=== PATIENT | male | born 1990 | race Caucasian/White ===

== ENCOUNTER → 2019-12-27 10:48 | Outpatient (BNVA) | payer OTHER, SELFPAY | PROVIDERS: PCP Family Medicine; Visit Provider Nurse Practitioner Family | DX: Z11.59 Encounter for screening for other viral diseases (principal); Z20.828 Contact with and (suspected) exposure to other viral communicable diseases | CPT/HCPCS: 87635 ==

== ENCOUNTER → 2020-01-03 12:58 | Outpatient (BNVA) | payer OTHER, SELFPAY | PROVIDERS: PCP Family Medicine; Visit Provider Nurse Practitioner Family | DX: Z11.59 Encounter for screening for other viral diseases (principal); Z20.828 Contact with and (suspected) exposure to other viral communicable diseases | CPT/HCPCS: 87635 ==

== ENCOUNTER → 2020-01-23 11:41 | Outpatient (BNVA) | payer OTHER, SELFPAY | PROVIDERS: PCP Family Medicine; Visit Provider Internal Medicine | DX: Z20.828 Contact with and (suspected) exposure to other viral communicable diseases (principal) | CPT/HCPCS: 87635 ==

== ENCOUNTER → 2020-05-26 11:58 | Outpatient (BNVA) | payer OTHER, SELFPAY | PROVIDERS: PCP Family Medicine; Visit Provider Emergency Medicine | DX: Z20.822 Contact with and (suspected) exposure to COVID-19 (principal) | CPT/HCPCS: 87635 ==

== ENCOUNTER 2020-05-30 09:01 | Inpatient (IN) | payer OTHER, SELFPAY ==
[2020-05-30] VITALS (9 sets, daily range): BP systolic 130–177; BP diastolic 70–103; PULSE 78–145; RESP 15–36; TEMP 36.6–37.7; O2SAT 88–93; BMI 48.7
--- NOTE | 2020-05-30 09:26 | XR_ITS ---
WS: [id number] XR chest 1V portable [id number] REASON FOR EXAM: sob, COVID + FINDINGS: Nondiagnostic quality limited by large body habitus. The heart and mediastinum are within normal limits. Patchy airspace consolidation in the left lower lobe, right lower lobe, and right mid lung. No pleural effusion identified. XR/XR chest 1V portable [id number] IMPRESSION: Presumed acute pneumonitis as above
--- NOTE | 2020-05-30 09:35 | ED_ITS ---
Documented by User: ÁNGEL Good 05/30/20 15:32 HPI - COVID General: Chief Complaint: COVID symptoms Stated Complaint: covid complications Time Seen by Provider: 05/30/20 09:18 Triage information: Has fever, cough or shortness of breath . Exposure to COVID + person last 14 days History of Present Illness: HPI Narrative: Patient type II diabetic with a history of cold symptoms since last Tuesday. Patient complains of cough muscle aches diarrhea dry heaving loss of taste and smell. Tested positive on 05/26. MD complaint: known COVID positive Prior covid testing: yes, results known Prior testing date: 05/26/20 COVID 19 common symptoms: positive fever(s), chills, non-productive cough, body aches, loss of sense of smell and/or taste, nausea and diarrhea; negative headache(s), throat pain or nasal congestion COVID 19 other sytmptoms: negative chest pain Onset (ago): day(s) Severity: moderate Pertinent comorbid conditions: diabetes and hypertension Treatment prior to arrival: none COVID Results: SARS-CoV-2 RNA (RT-PCR) Detected (NOT DETECTED) A 05/26/20 11:58 05/26/20 Review of Systems Const: Reports: fever(s), chills and body aches Eyes: Denies: change in vision or blurry vision ENMT: Denies: throat pain or nasal congestion Card: Denies: chest pain or dyspnea on exertion Resp: Reports: non-productive cough GI: Reports: nausea and diarrhea : Denies: difficulty urinating Musc: Denies: extremity pain Skin/Breast: Denies: rash Neuro: Denies: headache(s) Psych: Denies: anxiety or depression Fermín/Lymph: Denies: easy bruising Physical Exam Const: COMMON NORMALS: no acute distress, average body habitus (Obese BMI is 48) and patient oriented x3 HENMT: COMMON NORMALS: normocephalic HEAD & SCALP: normal to inspection and normocephalic FACE & SINUS: normal facial exam Eye: COMMON NORMALS: conjunctivae normal GENERAL EYE: appearance normal, both eyes and all related structures CONJUNCTIVA: Yes conjunctivae normal Neck/C-Spine: COMMON NORMALS: no JVD Chest: COMMONS NORMALS: normal inspection of the chest Resp: COMMON NORMALS: normal respiratory effort Cardio: COMMON NORMALS: no JVD and regular rhythm RATE: tachycardic RHYTHM: regular rhythm GI: COMMON NORMALS: Normal to inspection, nondistended, normoactive bowel sounds present Extremity: COMMON NORMALS: normal to inspection and full ROM Neuro: COMMON NORMALS: patient oriented x3 Course Vital Signs: Vital signs: Vital Signs Temperature 98.5 F 05/31/20 00:00 Pulse Rate 94 05/31/20 00:00 Respiratory Rate 20 H 05/31/20 00:00 Blood Pressure 141/82 05/31/20 00:00 Pulse Oximetry 91 05/31/20 00:00 MDM - COVID MDM Narrative: Medical decision making narrative: Discussed ABG and patient's presentation with Dr. Pate. Lab Data: Labs: Lab Results 05/30/20 05/30/20 05/30/20 Range/Units 09:30 09:30 09:30 WBC 8.6 (4.0-10.0) 10^3/ uL RBC 5.58 H (4.1-5.3) 10^6/u L Hgb 15.4 (11.7-16.6) g/dL Hct 47.1 (42.0-52.0) % MCV 84.4 (80-94) fL MCH 27.6 L (28.0-34.0) pg MCHC 32.7 (30.0-36.0) g/dL RDW 13.9 (12.1-15.1) % Plt Count 122 L (130-400) 10^3/c mm MPV 12.9 H (7.4-10.4) fL Neut % (Auto) 90.2 % Lymph % (Auto) 7.0 % Mineral % (Auto) 2.1 % Eos % (Auto) 0.0 % Baso % (Auto) 0.1 % Neut # (Auto) 7.76 H (1.8-7.7) 10^3/u L Lymph # (Auto) 0.6 L (0.8-4.8) 10^3/u L Mineral # (Auto) 0.2 (0.2-0.9) 10^3/u L Eos # (Auto) 0.0 (0.0-0.8) 10^3/u L Baso # (Auto) 0.0 (0.0-0.1) 10^3/u L Nucleated RBC % (a uto) 0 % Nucleated RBCs # 0.0 /100WBC PT Cancelled INR Cancelled Fibrinogen Cancelled D-Dimer (0-0.59) ug/mIFE U Specimen Type Sample Site ABG pH (7.35-7.45) ABG pCO2 (35-45) mmHg ABG pO2 (80.0-100.0) mmH g ABG HCO3 (22-26) mmol/L ABG Base Excess (-2.0-2.0) mmol/ L Huber Test Hematocrit (42-52) % O2 Delivery Device O2 Liters/Min % FiO2 % Manufacturing Process Engineer ID Sodium Cancelled Potassium Cancelled Chloride Cancelled Carbon Dioxide Cancelled Anion Gap Cancelled BUN Cancelled Creatinine Cancelled GFR Calculation Cancelled Glucose Cancelled Calculated Osmolal ity Cancelled Lactic Acid Calcium Cancelled Ferritin Cancelled Total Bilirubin Cancelled AST Cancelled ALT Cancelled Alkaline Phosphata se Cancelled Lactate Dehydrogen ase Cancelled Total Protein Cancelled Albumin Cancelled Globulin Cancelled Procalcitonin Cancelled 05/30/20 05/30/20 05/30/20 Range/Units 09:30 09:37 09:58 WBC (4.0-10.0) 10^3/ uL RBC (4.1-5.3) 10^6/u L Hgb (11.7-16.6) g/dL Hct (42.0-52.0) % MCV (80-94) fL MCH (28.0-34.0) pg MCHC (30.0-36.0) g/dL RDW (12.1-15.1) % Plt Count (130-400) 10^3/c mm MPV (7.4-10.4) fL Neut % (Auto) % Lymph % (Auto) % Mineral % (Auto) % Eos % (Auto) % Baso % (Auto) % Neut # (Auto) (1.8-7.7) 10^3/u L Lymph # (Auto) (0.8-4.8) 10^3/u L Mineral # (Auto) (0.2-0.9) 10^3/u L Eos # (Auto) (0.0-0.8) 10^3/u L Baso # (Auto) (0.0-0.1) 10^3/u L Nucleated RBC % (a uto) % Nucleated RBCs # /100WBC PT INR Fibrinogen D-Dimer (0-0.59) ug/mIFE U Specimen Type Arterial Sample Site Radial, right ABG pH 7.42 (7.35-7.45) ABG pCO2 27.1 L (35-45) mmHg ABG pO2 49.9 L (80.0-100.0) mmH g ABG HCO3 17.4 L (22-26) mmol/L ABG Base Excess -5.3 L (-2.0-2.0) mmol/ L Huber Test Pos Hematocrit 48.8 (42-52) % O2 Delivery Device Nc O2 Liters/Min 2.0 % FiO2 28.0 % Manufacturing Process Engineer ID Ed Sodium Potassium Chloride Carbon Dioxide Anion Gap BUN Creatinine GFR Calculation Glucose Calculated Osmolal ity Lactic Acid Cancelled 1.8 Calcium Ferritin Total Bilirubin AST ALT Alkaline Phosphata se Lactate Dehydrogen ase Total Protein Albumin Globulin Procalcitonin 05/30/20 05/30/20 05/30/20 Range/Units 09:58 09:58 09:59 WBC (4.0-10.0) 10^3/ uL RBC (4.1-5.3) 10^6/u L Hgb (11.7-16.6) g/dL Hct (42.0-52.0) % MCV (80-94) fL MCH (28.0-34.0) pg MCHC (30.0-36.0) g/dL RDW (12.1-15.1) % Plt Count (130-400) 10^3/c mm MPV (7.4-10.4) fL Neut % (Auto) % Lymph % (Auto) % Mineral % (Auto) % Eos % (Auto) % Baso % (Auto) % Neut # (Auto) (1.8-7.7) 10^3/u L Lymph # (Auto) (0.8-4.8) 10^3/u L Mineral # (Auto) (0.2-0.9) 10^3/u L Eos # (Auto) (0.0-0.8) 10^3/u L Baso # (Auto) (0.0-0.1) 10^3/u L Nucleated RBC % (a uto) % Nucleated RBCs # /100WBC PT 13.50 INR 1.00 Fibrinogen 807 H D-Dimer 0.60 H (0-0.59) ug/mIFE U Specimen Type Sample Site ABG pH (7.35-7.45) ABG pCO2 (35-45) mmHg ABG pO2 (80.0-100.0) mmH g ABG HCO3 (22-26) mmol/L ABG Base Excess (-2.0-2.0) mmol/ L Huber Test Hematocrit (42-52) % O2 Delivery Device O2 Liters/Min % FiO2 % Manufacturing Process Engineer ID Sodium 134 L Potassium 3.8 Chloride 96 L Carbon Dioxide 17 L Anion Gap 24.8 H BUN 8 Creatinine 0.6 L GFR Calculation 156.1 H Glucose 346 H Calculated Osmolal ity 290 Lactic Acid Calcium 8.8 Ferritin 1715 H Total Bilirubin 0.4 AST 39 ALT 37 Alkaline Phosphata se 62 Lactate Dehydrogen ase 395 H Total Protein 7.7 Albumin 3.7 Globulin 4.0 Procalcitonin 0.27 03/19/21 Range/Units 11:13 WBC (4.0-10.0) 10^3/ uL RBC (4.1-5.3) 10^6/u L Hgb (11.7-16.6) g/dL Hct (42.0-52.0) % MCV (80-94) fL MCH (28.0-34.0) pg MCHC (30.0-36.0) g/dL RDW (12.1-15.1) % Plt Count (130-400) 10^3/c mm MPV (7.4-10.4) fL Neut % (Auto) % Lymph % (Auto) % Mineral % (Auto) % Eos % (Auto) % Baso % (Auto) % Neut # (Auto) (1.8-7.7) 10^3/u L Lymph # (Auto) (0.8-4.8) 10^3/u L Mineral # (Auto) (0.2-0.9) 10^3/u L Eos # (Auto) (0.0-0.8) 10^3/u L Baso # (Auto) (0.0-0.1) 10^3/u L Nucleated RBC % (a uto) % Nucleated RBCs # /100WBC PT INR Fibrinogen D-Dimer (0-0.59) ug/mIFE U Specimen Type Arterial Sample Site Radial, right ABG pH 7.38 (7.35-7.45) ABG pCO2 28.8 L (35-45) mmHg ABG pO2 71.1 L (80.0-100.0) mmH g ABG HCO3 17.0 L (22-26) mmol/L ABG Base Excess -6.7 L (-2.0-2.0) mmol/ L Huber Test Pos Hematocrit 43.3 (42-52) % O2 Delivery Device Nc O2 Liters/Min 5.0 % FiO2 40.0 % Manufacturing Process Engineer ID Ed Sodium Potassium Chloride Carbon Dioxide Anion Gap BUN Creatinine GFR Calculation Glucose Calculated Osmolal ity Lactic Acid Calcium Ferritin Total Bilirubin AST ALT Alkaline Phosphata se Lactate Dehydrogen ase Total Protein Albumin Globulin Procalcitonin COVID Results: SARS-CoV-2 RNA (RT-PCR) Detected (NOT DETECTED) A 05/26/20 11:58 05/26/20 Discharge Plan Discharge Patient Disposition: Admitted As Inpatient Admit Provider: Emeka Drake Clinical Impression: Pneumonia due to 2019 novel coronavirus, Acute respiratory failure Condition: Stable Sign Out Sign Out Data: Patient Sign Out occurred on 05/30/20 at 11:27. Patient's care was discussed, and care was transferred from to Tony Izquierdo MD, [facility]. Coding Level of Care Code ED Mixer Diamond Powder for Chg Fwd Exam Comprehensive Documented by User: Tony Izquierdo MD, [facility] 05/31/20 00:33 HPI - COVID General: Chief Complaint: COVID symptoms Stated Complaint: covid complications Time Seen by Provider: 05/30/20 09:18 COVID Results: SARS-CoV-2 RNA (RT-PCR) Detected (NOT DETECTED) A 05/26/20 11:58 05/26/20 Course Consultations: Consultation #1: Discussed the patient with Dr. Drake, hospitalist and he kindly accepted patient to his service. Time: 13:19 Vital Signs: Vital signs: Vital Signs Temperature 98.5 F 05/31/20 00:00 Pulse Rate 94 05/31/20 00:00 Respiratory Rate 20 H 05/31/20 00:00 Blood Pressure 141/82 05/31/20 00:00 Pulse Oximetry 91 05/31/20 00:00 MDM - COVID MDM Narrative: Medical decision making narrative: Currently reviewed the nurse practitioner's notes, Michael Jacobo, for complete history and physical examination. I also evaluated this patient and agree with his findings. Essentially this is a 30-year-old obese, diabetic gentleman who was recently diagnosed with COVID-19 about 4 days ago. He has been feeling unwell for about 1 week now. He developed significant shortness of breath and was hypoxic in the emergency department requiring up to 6 L of oxygen via nasal cannula. Because of this and the fact that he is high risk with his obesity and diabetes he is being admitted for further evaluation and management. He was given a dose of dexamethasone in the emergency department as well as remdesivir. Medical Records: Attestation: I reviewed the patient's medical records. Lab Data: Attestation: I reviewed the patient's lab results. Labs: Lab Results 05/30/20 05/30/20 05/30/20 Range/Units 09:30 09:30 09:30 WBC 8.6 (4.0-10.0) 10^3/ uL RBC 5.58 H (4.1-5.3) 10^6/u L Hgb 15.4 (11.7-16.6) g/dL Hct 47.1 (42.0-52.0) % MCV 84.4 (80-94) fL MCH 27.6 L (28.0-34.0) pg MCHC 32.7 (30.0-36.0) g/dL RDW 13.9 (12.1-15.1) % Plt Count 122 L (130-400) 10^3/c mm MPV 12.9 H (7.4-10.4) fL Neut % (Auto) 90.2 % Lymph % (Auto) 7.0 % Mineral % (Auto) 2.1 % Eos % (Auto) 0.0 % Baso % (Auto) 0.1 % Neut # (Auto) 7.76 H (1.8-7.7) 10^3/u L Lymph # (Auto) 0.6 L (0.8-4.8) 10^3/u L Mineral # (Auto) 0.2 (0.2-0.9) 10^3/u L Eos # (Auto) 0.0 (0.0-0.8) 10^3/u L Baso # (Auto) 0.0 (0.0-0.1) 10^3/u L Nucleated RBC % (a uto) 0 % Nucleated RBCs # 0.0 /100WBC PT Cancelled INR Cancelled Fibrinogen Cancelled D-Dimer (0-0.59) ug/mIFE U Specimen Type Sample Site ABG pH (7.35-7.45) ABG pCO2 (35-45) mmHg ABG pO2 (80.0-100.0) mmH g ABG HCO3 (22-26) mmol/L ABG Base Excess (-2.0-2.0) mmol/ L Huber Test Hematocrit (42-52) % O2 Delivery Device O2 Liters/Min % FiO2 % Manufacturing Process Engineer ID Sodium Cancelled Potassium Cancelled Chloride Cancelled Carbon Dioxide Cancelled Anion Gap Cancelled BUN Cancelled Creatinine Cancelled GFR Calculation Cancelled Glucose Cancelled Calculated Osmolal ity Cancelled Lactic Acid Calcium Cancelled Ferritin Cancelled Total Bilirubin Cancelled AST Cancelled ALT Cancelled Alkaline Phosphata se Cancelled Lactate Dehydrogen ase Cancelled Total Protein Cancelled Albumin Cancelled Globulin Cancelled Procalcitonin Cancelled 05/30/20 05/30/20 05/30/20 Range/Units 09:30 09:37 09:58 WBC (4.0-10.0) 10^3/ uL RBC (4.1-5.3) 10^6/u L Hgb (11.7-16.6) g/dL Hct (42.0-52.0) % MCV (80-94) fL MCH (28.0-34.0) pg MCHC (30.0-36.0) g/dL RDW (12.1-15.1) % Plt Count (130-400) 10^3/c mm MPV (7.4-10.4) fL Neut % (Auto) % Lymph % (Auto) % Mineral % (Auto) % Eos % (Auto) % Baso % (Auto) % Neut # (Auto) (1.8-7.7) 10^3/u L Lymph # (Auto) (0.8-4.8) 10^3/u L Mineral # (Auto) (0.2-0.9) 10^3/u L Eos # (Auto) (0.0-0.8) 10^3/u L Baso # (Auto) (0.0-0.1) 10^3/u L Nucleated RBC % (a uto) % Nucleated RBCs # /100WBC PT INR Fibrinogen D-Dimer (0-0.59) ug/mIFE U Specimen Type Arterial Sample Site Radial, right ABG pH 7.42 (7.35-7.45) ABG pCO2 27.1 L (35-45) mmHg ABG pO2 49.9 L (80.0-100.0) mmH g ABG HCO3 17.4 L (22-26) mmol/L ABG Base Excess -5.3 L (-2.0-2.0) mmol/ L Huber Test Pos Hematocrit 48.8 (42-52) % O2 Delivery Device Nc O2 Liters/Min 2.0 % FiO2 28.0 % Manufacturing Process Engineer ID Ed Sodium Potassium Chloride Carbon Dioxide Anion Gap BUN Creatinine GFR Calculation Glucose Calculated Osmolal ity Lactic Acid Cancelled 1.8 Calcium Ferritin Total Bilirubin AST ALT Alkaline Phosphata se Lactate Dehydrogen ase Total Protein Albumin Globulin Procalcitonin 05/30/20 05/30/20 05/30/20 Range/Units 09:58 09:58 09:59 WBC (4.0-10.0) 10^3/ uL RBC (4.1-5.3) 10^6/u L Hgb (11.7-16.6) g/dL Hct (42.0-52.0) % MCV (80-94) fL MCH (28.0-34.0) pg MCHC (30.0-36.0) g/dL RDW (12.1-15.1) % Plt Count (130-400) 10^3/c mm MPV (7.4-10.4) fL Neut % (Auto) % Lymph % (Auto) % Mineral % (Auto) % Eos % (Auto) % Baso % (Auto) % Neut # (Auto) (1.8-7.7) 10^3/u L Lymph # (Auto) (0.8-4.8) 10^3/u L Mineral # (Auto) (0.2-0.9) 10^3/u L Eos # (Auto) (0.0-0.8) 10^3/u L Baso # (Auto) (0.0-0.1) 10^3/u L Nucleated RBC % (a uto) % Nucleated RBCs # /100WBC PT 13.50 INR 1.00 Fibrinogen 807 H D-Dimer 0.60 H (0-0.59) ug/mIFE U Specimen Type Sample Site ABG pH (7.35-7.45) ABG pCO2 (35-45) mmHg ABG pO2 (80.0-100.0) mmH g ABG HCO3 (22-26) mmol/L ABG Base Excess (-2.0-2.0) mmol/ L Huber Test Hematocrit (42-52) % O2 Delivery Device O2 Liters/Min % FiO2 % Manufacturing Process Engineer ID Sodium 134 L Potassium 3.8 Chloride 96 L Carbon Dioxide 17 L Anion Gap 24.8 H BUN 8 Creatinine 0.6 L GFR Calculation 156.1 H Glucose 346 H Calculated Osmolal ity 290 Lactic Acid Calcium 8.8 Ferritin 1715 H Total Bilirubin 0.4 AST 39 ALT 37 Alkaline Phosphata se 62 Lactate Dehydrogen ase 395 H Total Protein 7.7 Albumin 3.7 Globulin 4.0 Procalcitonin 0.27 03/19/21 Range/Units 11:13 WBC (4.0-10.0) 10^3/ uL RBC (4.1-5.3) 10^6/u L Hgb (11.7-16.6) g/dL Hct (42.0-52.0) % MCV (80-94) fL MCH (28.0-34.0) pg MCHC (30.0-36.0) g/dL RDW (12.1-15.1) % Plt Count (130-400) 10^3/c mm MPV (7.4-10.4) fL Neut % (Auto) % Lymph % (Auto) % Mineral % (Auto) % Eos % (Auto) % Baso % (Auto) % Neut # (Auto) (1.8-7.7) 10^3/u L Lymph # (Auto) (0.8-4.8) 10^3/u L Mineral # (Auto) (0.2-0.9) 10^3/u L Eos # (Auto) (0.0-0.8) 10^3/u L Baso # (Auto) (0.0-0.1) 10^3/u L Nucleated RBC % (a uto) % Nucleated RBCs # /100WBC PT INR Fibrinogen D-Dimer (0-0.59) ug/mIFE U Specimen Type Arterial Sample Site Radial, right ABG pH 7.38 (7.35-7.45) ABG pCO2 28.8 L (35-45) mmHg ABG pO2 71.1 L (80.0-100.0) mmH g ABG HCO3 17.0 L (22-26) mmol/L ABG Base Excess -6.7 L (-2.0-2.0) mmol/ L Huber Test Pos Hematocrit 43.3 (42-52) % O2 Delivery Device Nc O2 Liters/Min 5.0 % FiO2 40.0 % Manufacturing Process Engineer ID Ed Sodium Potassium Chloride Carbon Dioxide Anion Gap BUN Creatinine GFR Calculation Glucose Calculated Osmolal ity Lactic Acid Calcium Ferritin Total Bilirubin AST ALT Alkaline Phosphata se Lactate Dehydrogen ase Total Protein Albumin Globulin Procalcitonin Imaging Data: CTA Chest: Attestation: I personally reviewed and interpreted this imaging study as follows: Radiologist's impression: [address] [address] [address] Scan Report Signed Patient: Omid Alfonso #: [id number] : 1990Acct#:[id number] Age/Sex: 30 / MADM Date: 05/30/20 [facility] Attending Dr: Ordering Provider/Ordering MD: Tony Izquierdo MD, [facility] Date of Service: 05/30/20 Procedure(s): CT angio chest PE protcl [id number] Accession Number(s): [id number] Report Number: [id number] WS: [id number] CT angio chest PE protcl [id number] REASON FOR EXAM: SOB, hypoxia, COVID+ TECHNIQUE: Coronal and sagittal 2-D and MIP reformations. IV CONTRAST ADMINISTERED: 95 mL of Omnipaque 300. TOTAL EXAM DLP: 1750.[address] scans at [facility] use at least one of these dose optimization techniques: automated exposure control; mA and/or kV adjustment per patient size (includes targeted exams where dose is matched to clinical indication); or iterative reconstruction. FINDINGS: Significant artifact through the pulmonary vasculature due to dense contrast remaining in the left subclavian, innominate, and SVC veins. No pulmonary emboli identified. No mediastinal or hilar mass. Normal thoracic aorta. Extensive areas of confluent airspace consolidation and patchy distribution throughout both lungs. There are also areas of more vaguely defined groundglass density. No significant pleural fluid. CT/CT angio chest PE protcl [id number] IMPRESSION: Examination for pulmonary emboli is not optimal however no pulmonary emboli identified. Extensive pulmonary parenchymal disease as above. Dictated By:Rylan Johns Jr, MD Signed By:Rylan Johns Jr MDSigned Date/Time:05/30/20 1406 DD/ 1356 CXR: Attestation: I personally reviewed and interpreted this imaging study as follows: Radiologist's impression: [address] [address] XRay Report Signed Patient: Omid Alfonso #: [id number] : 1990Acct#:[id number] Age/Sex: 30 / MADM Date: 05/30/20 Loc: ERRoom/Bed: Attending Dr: Ordering Provider/Ordering MD: Silvana Jacobo Sr, [facility] Date of Service: 05/30/20 Procedure(s): XR chest 1V portable [id number] Accession Number(s): [id number] Report Number: [id number] WS: [id number] XR chest 1V portable [id number] REASON FOR EXAM: sob, COVID + FINDINGS: Nondiagnostic quality limited by large body habitus. The heart and mediastinum are within normal limits. Patchy airspace consolidation in the left lower lobe, right lower lobe, and right mid lung. No pleural effusion identified. XR/XR chest 1V portable [id number] IMPRESSION: Presumed acute pneumonitis as above Dictated By:Rylan Johns Jr, MD Signed By:Rylan Johns Jr MDSigned Date/Time:05/30/20948 DD/ COVID Results: SARS-CoV-2 RNA (RT-PCR) Detected (NOT DETECTED) A 05/26/20 11:58 05/26/20 Discharge Plan Discharge Patient Disposition: Admitted As Inpatient Admit Provider: Emeka Drake Clinical Impression: Pneumonia due to 2019 novel coronavirus, Acute respiratory failure Condition: Stable Sign Out Sign Out Data: Patient Sign Out occurred on 05/30/20 at 11:27. Patient's care was discussed, and care was transferred from to Tony Izquierdo MD, [facility]. Coding Level of Care Code ED Mixer Diamond Powder for Chg Fwd Exam Comprehensive
[2020-05-30 09:49] LABS: ABG PCO2 27.1 mmHg (35-45); ABG PH Result 7.42 (7.35-7.45); Arterial Blood Gas Hematocrit 48.8 % (42-52); Base Excess ABG -5.3 mmol/L (-2.0-2.0); Blood Gas Allen Test Pos; Blood Gas Operator Identificat ED; Blood Gas Sample Site Radial, right; Blood Gas Sample Type Arterial; HCO3 ABG 17.4 mmol/L (22-26); Oxygen Device NC; PO2 ABG 49.9 mmHg (80.0-100.0)
[2020-05-30 09:51] LABS: Basophils % 0.1 %; Hematocrit 47.1 % (42.0-52.0); Hemoglobin 15.4 g/dL (11.7-16.6); Lymphocytes # 0.6 10^3/uL (0.8-4.8); Mean Corpuscular HGB Conc 32.7 g/dL (30.0-36.0); Mean Corpuscular Hemoglobin 27.6 pg (28.0-34.0); Mean Corpuscular Volume 84.4 fL (80-94); Mean Platelet Volume 12.9 fL (7.4-10.4); Monocytes # 0.2 10^3/uL (0.2-0.9); Monocytes % 2.1 %; Neutrophils # 7.76 10^3/uL (1.8-7.7); Neutrophils % 90.2 %; Nucleated Red Blood Cells % 0 %; Platelet Count 122 10^3/cmm (130-400); Red Blood Count 5.58 10^6/uL (4.1-5.3); Red Cell Distribution Width 13.9 % (12.1-15.1); White Blood Count 8.6 10^3/uL (4.0-10.0)
[2020-05-30] MEDS: sodium chloride 0.9% 1,000 ML 999 ML IV (10:06)
[2020-05-30 10:25] LABS: Lactic Sepsis W/Reflex 1.8 mmol/L (0.5-2.2)
[2020-05-30] MEDS: ketorolac 30 mg/mL INJ IVP ×3 (10:34→21:51)
[2020-05-30] MEDS: acetaminophen 650 mg/20.3 mL UDC PO (10:34)
[2020-05-30 10:35] LABS: Procalcitonin 0.27 ng/mL (0-0.5)
[2020-05-30 10:46] LABS: Alanine Aminotransferase 37 U/L (0-41); Albumin Level 3.7 g/dL (3.5-5.2); Alkaline Phosphatase 62 IU/L (40-130); Aspartate Amino Transferase 39 U/L (0-40); Blood Urea Nitrogen 8 mg/dL (6-20); Calcium 8.8 mg/dL (8.5-10.5); Carbon Dioxide 17 mmol/L (22-29); Glomerular Filtration Rate 156.1 mL/min (90-130); Glucose 346 mg/dL (65-115); Lactate Dehydrogenase 395 U/L (135-225); Total Bilirubin 0.4 mg/dL (0.15-1.2); Total Protein 7.7 g/dL (6.6-8.7)
[2020-05-30 10:49] LABS: Fibrinogen 807 mg/dL (174-498)
[2020-05-30 11:22] LABS: ABG PCO2 28.8 mmHg (35-45); ABG PH Result 7.38 (7.35-7.45); Arterial Blood Gas Hematocrit 43.3 % (42-52); Base Excess ABG -6.7 mmol/L (-2.0-2.0); Blood Gas Allen Test Pos; Blood Gas Sample Type Arterial; PO2 ABG 71.1 mmHg (80.0-100.0)
[2020-05-30 11:23] LABS: Anion Gap 24.8 (5-19); Chloride 96 mmol/L (98-107); Ferritin 1715 ng/mL (30-400); Osmolality Calculated 290 mOsm/kg (285-295); Potassium 3.8 mmol/L (3.5-5.1); Sodium 134 mmol/L (136-145)
[2020-05-30 11:24] LABS: Blood Gas Operator Identificat ED; Blood Gas Sample Site Radial, right; Oxygen Device NC
--- NOTE | 2020-05-30 12:07 | CT_ITS ---
WS: [id number] CT angio chest PE protcl [id number] REASON FOR EXAM: SOB, hypoxia, COVID+ TECHNIQUE: Coronal and sagittal 2-D and MIP reformations. IV CONTRAST ADMINISTERED: 95 mL of Omnipaque 300. TOTAL EXAM DLP: 1750.[address] scans at [facility] use at least one of these dose optimization techniques: automat ed exposure control; mA and/or kV adjustment per patient size (includes targeted exams where dose is matched to clinical indication); or iterative reconstruction. FINDINGS: Significant artifact through the pulmonary vasculature due to dense contrast remaining in the left hernandez bclavian, innominate, and SVC veins. No pulmonary emboli identified. No mediastinal or hilar mass. Normal thoracic aorta. Extensive areas of confluent airspace consolidation and patchy distribution throughout both lungs. Th ere are also areas of more vaguely defined groundglass density. No significant pleural fluid. CT/CT angio chest PE protcl [id number] IMPRESSION: Examination for pulmonary emboli is not optimal however no pulmonary emboli latonya ntified. Extensive pulmonary parenchymal disease as above.
[2020-05-30] MEDS: iohexol 350 mg/mL 100 mL Btl IV (13:48)
[2020-05-30] MEDS: remdesivir 200 MG in sodium chloride 0.9% (100 ml) 100 ML 100 MG IV (14:32)
[2020-05-30] MEDS: dexamethasone 4 mg/mL INJ 6 MG IVP (14:51)
--- NOTE | 2020-05-30 15:27 | P.HP_ITS ---
Providers/Chief Complaint Primary Care Provider: Kenny Rico Chief Complaint: COVID+...COUGH, DRY HEAVES, FEVER History of Present Illness Omid Alfonso is a 30 year old male with pmh of DM currently not on any medication, mobid obesity, came in with c/o worsening non productive cough,fever, sob,genralizsed body pain, diarrhea , dry heaves , loss of taste and smell, started about a week ago,he was tested positive for COVID on 05/26 initially stayed at home but unfortunately has to come to the ER today as his symptoms were progressively worsening.He developed significant shortness of breath and was hypoxic in the emergency department requiring up to 6 L of oxygen via nasal cannula. Pertinent work up. C.T.A chest : No P.E : Extensive areas of confluent airspace consolidation and patchy distribution throughout both lungs. There are also areas of more vaguely defined groundglass density. ABG : Ph: 7.38,PCO2: 28, PO2: 71 FIO2 : 40 % He was started on Remdesivir as well as dexamethasone in the ER. Review of Systems Card: Denies: palpitations, edema or swelling of feet/ankles : Denies: flank pain or difficulty urinating Musc: Denies: back pain, extremity pain or extremity swelling Neuro: Denies: difficulty walking or confusion Medications/Allergies Home Medications Medication Instructions Recorded Confirmed Last Taken Type No Known Home Medications 12/27/19 05/30/20 Unknown History Allergies Allergy/AdvReac Type Severity Reaction Status Date / Time No Known Allergies Allergy Unverified 12/27/19 09:13 Vitals/I&O/Wt Last Vital Signs Temp 98 F 05/30/20 11:32 Pulse 122 H 05/30/20 11:32 Resp 24 H 05/30/20 11:32 BP 152/83 05/30/20 11:32 Pulse Ox 92 05/30/20 11:32 Weight last 48 hrs Weight 149.685 kg Physical Exam Const: COMMON NORMALS: patient oriented x3 HENMT: COMMON NORMALS: normocephalic, atraumatic, hearing grossly normal bilaterally and external ears normal HEAD & SCALP: normocephalic and atraumatic EXTERNAL EAR: Yes external ears normal Eye: COMMON NORMALS: no scleral icterus GENERAL EYE: appearance normal, both eyes and all related structures Chest: COMMONS NORMALS: normal inspection of the chest and normal palpation of entire chest wall CHEST: Yes Symmetrical chest wall rise Resp: COMMON NORMALS: normal respiratory effort, No retractions, No use of accessory muscles and clear to auscultation bilaterally EFFORT & INSPECTION: Yes symmetric chest movement AUSCULTATION: clear to auscultation bilaterally Cardio: COMMON NORMALS: regular rate, regular rhythm, S1 normal heart sound present, S2 normal heart sound present, No gallops present (Cardio), No murmurs present (Cardio), No rub (Cardio) and Peripheral pulses 2+ throughout RATE: regular rate RHYTHM: regular rhythm HEART SOUNDS: S1 normal heart sound present and S2 normal heart sound present PERIPHERAL PULSES: Peripheral pulses 2+ throughout GI: COMMON NORMALS: Normal to inspection, nondistended, normoactive bowel soun ds present, Soft to palpation, non-tender, No hepatosplenomegaly present and no masses AUSCULTATION: Yes normoactive bowel sounds PALPATION: Yes Soft to palpation and Yes No hepatosplenomegaly present RECTAL EXAM: Yes deferred Extremity: COMMON NORMALS: no clubbing, cyanosis or edema and no pedal edema Neuro: COMMON NORMALS: patient oriented x3 Data : 05/31/20 05:50 05/30/20 09:58 A&P Assessment and plan (1) Acute respiratory failure: Ac Hypoxic R/F 2/2 COVID PNA /Possible superimposed bacterial PNA. On Remdesivir for 5 day course Dexamethasone 6mg I.V 10 Days course Levofloxacin 750 mg i.v Daily Trend Inflammatory Markers Lovenox 40 mg sc daily Status: Acute Qualifiers: Respiratory failure complication: hypoxia Qualified Code(s): J96.01 - Acute respiratory failure with hypoxia (2) Pneumonia due to 2019 novel coronavirus: Status: Acute (3) Diabetes: Status: Acute Additional A&P Information Code Status :Full Code DVT PPX: Lovenox 40 m sc daily Attestations Medical Necessity Statement*: Patient needs to be in hospital for the management of COVID PNA.Anticipated LOS Greater then 2 midnights Coding Level of Care Code Acute Studio Data Analyst for [facility] Diagnoses Acute respiratory failure J96.01 Respiratory failure complication: hypoxia Pneumonia due to 2019 novel coronavirus U07.1; J12.89 Diabetes E11.9
[2020-05-30] MEDS: enoxaparin 40 mg/0.4 mL Syringe SUBCUT (16:30)
[2020-05-30] MEDS: levofloxacin-dextrose 5 % 750 MG/150 ML PREMIX 100 MG IV (16:30)
[2020-05-30 17:35] LABS: Glucose Point of Care 325 mg/dL (70-110)
[2020-05-30 21:50] LABS: Glucose Point of Care 374 mg/dL (70-110)
[2020-05-31] VITALS (11 sets, daily range): BP systolic 132–161; BP diastolic 81–96; PULSE 94–124; RESP 16–24; TEMP 35.9–37.2; O2SAT 89–93
[2020-05-31] MEDS: ketorolac 30 mg/mL INJ IVP (04:52)
[2020-05-31 06:16] LABS: Hematocrit 42.6 % (42.0-52.0); Hemoglobin 13.6 g/dL (11.7-16.6); Lymphocytes # 0.8 10^3/uL (0.8-4.8); Lymphocytes % 10.2 %; Mean Corpuscular HGB Conc 31.9 g/dL (30.0-36.0); Mean Corpuscular Hemoglobin 27.4 pg (28.0-34.0); Mean Corpuscular Volume 85.7 fL (80-94); Mean Platelet Volume 12.7 fL (7.4-10.4); Monocytes # 0.2 10^3/uL (0.2-0.9); Neutrophils # 6.39 10^3/uL (1.8-7.7); Neutrophils % 86.1 %; Nucleated Red Blood Cells % 0 %; Platelet Count 131 10^3/cmm (130-400); Red Blood Count 4.97 10^6/uL (4.1-5.3); Red Cell Distribution Width 13.8 % (12.1-15.1); White Blood Count 7.4 10^3/uL (4.0-10.0)
[2020-05-31 06:36] LABS: D Dimer 0.65 ug/mIFEU (0-0.59)
[2020-05-31 06:49] LABS: Procalcitonin 0.25 ng/mL (0-0.5)
[2020-05-31 07:01] LABS: Anion Gap 22.2 (5-19); Blood Urea Nitrogen 14 mg/dL (6-20); C Reactive Protein 247.3 mg/L (0.0-4.9); Calcium 8.7 mg/dL (8.5-10.5); Carbon Dioxide 19 mmol/L (22-29); Chloride 98 mmol/L (98-107); Glomerular Filtration Rate 192.7 mL/min (90-130); Glucose 280 mg/dL (65-115); Osmolality Calculated 291 mOsm/kg (285-295); Potassium 4.2 mmol/L (3.5-5.1); Sodium 135 mmol/L (136-145)
[2020-05-31 07:06] LABS: Glucose Point of Care 301 mg/dL (70-110)
[2020-05-31 07:22] LABS: Ferritin 1581 ng/mL (30-400)
[2020-05-31 11:54] LABS: Glucose Point of Care 366 mg/dL (70-110)
--- NOTE | 2020-05-31 12:40 | P.PN_ITS ---
Subjective Subjective: Interval history: Patient was seen and examined this morning, continues to complain of dry cough, coughing is worsened with deep breathing and exertion. Has remained afebrile, currently requiring 6 to 7 L of oxygen through HFNC. Vitals/I&O/Wt Last Vital Signs Temp 97.8 F 05/31/20 11:24 Pulse 102 H 05/31/20 11:24 Resp 18 05/31/20 11:24 BP 154/89 05/31/20 11:24 Pulse Ox 90 05/31/20 11:24 05/30/20 05/31/20 05/31/20 22:59 06:59 14:59 Intake Total 450 / 1450 240 / 240 Output Total 0 / 0 0 / 0 Balance 450 / 1450 0 / 1450 240 / 240 Weight last 48 hrs Weight 149.685 kg Physical Exam Const: COMMON NORMALS: patient oriented x3 HENMT: COMMON NORMALS: normocephalic, atraumatic, hearing grossly normal bilaterally and external ears normal HEAD & SCALP: normocephalic and atraumatic EXTERNAL EAR: Yes external ears normal Eye: COMMON NORMALS: no scleral icterus GENERAL EYE: appearance normal, both eyes and all related structures Chest: COMMONS NORMALS: normal inspection of the chest and normal palpation of entire chest wall CHEST: Yes Symmetrical chest wall rise Resp: COMMON NORMALS: normal respiratory effort, No retractions, No use of accessory muscles and clear to auscultation bilaterally EFFORT & INSPECTION: Yes symmetric chest movement AUSCULTATION: clear to auscultation bilaterally Cardio: COMMON NORMALS: regular rate, regular rhythm, S1 normal heart sound present, S2 normal heart sound present, No gallops present (Cardio), No murmurs present (Cardio), No rub (Cardio) and Peripheral pulses 2+ throughout RATE: regular rate RHYTHM: regular rhythm HEART SOUNDS: S1 normal heart sound present and S2 normal heart sound present PERIPHERAL PULSES: Peripheral pulses 2+ throughout GI: COMMON NORMALS: Normal to inspection, nondistended, normoactive bowel sounds present, Soft to palpation, non-tender, No hepatosplenomegaly present and no masses AUSCULTATION: Yes normoactive bowel sounds PALPATION: Yes Soft to palpation and Yes No hepatosplenomegaly present RECTAL EXAM: Yes deferred Extremity: COMMON NORMALS: no clubbing, cyanosis or edema and no pedal edema Neuro: COMMON NORMALS: patient oriented x3 Data : 05/31/20 05:50 05/31/20 05:50 A&P Assessment and plan (1) Acute respiratory failure: Ac Hypoxic R/F 2/2 COVID PNA /Possible superimposed bacterial PNA. On Remdesivir for 5 day course Dexamethasone 6mg I.V 10 Days course Advair I PUFF BID Levofloxacin 750 mg i.v Daily Trend Inflammatory Markers Lovenox 40 mg sc daily Status: Acute Qualifiers: Respiratory failure complication: hypoxia Qualified Code(s): J96.01 - Acute respiratory failure with hypoxia (2) Pneumonia due to 2019 novel coronavirus: Status: Acute (3) Diabetes: Status: Acute Additional A&P Information Code Status :Full Code DVT PPX: Lovenox 40 m sc daily Attestations Medical Necessity Statement*: Patient needs to the hospital for management of respiratory failure. Coding Level of Care Code Acute Obiee Obia Solution Architect for [facility] Diagnoses Acute respiratory failure J96.01 Respiratory failure complication: hypoxia Pneumonia due to 2019 novel coronavirus U07.1; J12.89 Diabetes E11.9
[2020-05-31] MEDS: acetaminophen 325 mg Tablet 650 MG PO (13:58)
[2020-05-31] MEDS: dexamethasone 4 mg/mL INJ 6 MG IVP (15:05)
[2020-05-31 16:51] LABS: Glucose Point of Care 327 mg/dL (70-110)
[2020-05-31] MEDS: enoxaparin 40 mg/0.4 mL Syringe SUBCUT (17:34)
[2020-05-31] MEDS: levofloxacin-dextrose 5 % 750 MG/150 ML PREMIX 100 MG IV (17:34)
--- NOTE | 2020-05-31 19:29 | PC.NURSE ---
shift summary pt started out at 3L nasal cannula, at approximately 1300 pt took a shower and started to become more short of breath, nurse applied 10L nasal cannula to pt due to oxygen saturation being at 80%, after approximately 45 min pt was able to be on 8 L sitting at 89-90% with RT being called to assist with pt. pt at approximately 1600 was lying flat in bed at 8 L with oxygen saturation at 92%. no other changes this shift.
[2020-05-31] MEDS: remdesivir 100 MG in sodium chloride 0.9% (100 ml) 100 ML IV (19:33)
[2020-05-31] MEDS: guaiFENesin-dextromethorphan UDC 10 mL 5 ML PO (20:13)
[2020-05-31 20:53] LABS: Glucose Point of Care 452 mg/dL (70-110)
[2020-06-01] VITALS (10 sets, daily range): BP systolic 119–149; BP diastolic 77–91; PULSE 81–106; RESP 18–24; TEMP 36.2–36.9; O2SAT 90–95
[2020-06-01 06:10] LABS: Basophils % 0.2 %; Hematocrit 42.4 % (42.0-52.0); Hemoglobin 13.5 g/dL (11.7-16.6); Lymphocytes # 0.7 10^3/uL (0.8-4.8); Lymphocytes % 11.6 %; Mean Corpuscular HGB Conc 31.8 g/dL (30.0-36.0); Mean Corpuscular Hemoglobin 27.3 pg (28.0-34.0); Mean Corpuscular Volume 85.8 fL (80-94); Mean Platelet Volume 12.1 fL (7.4-10.4); Monocytes # 0.4 10^3/uL (0.2-0.9); Monocytes % 5.6 %; Neutrophils # 5.12 10^3/uL (1.8-7.7); Neutrophils % 82.1 %; Nucleated Red Blood Cells % 0 %; Platelet Count 173 10^3/cmm (130-400); Red Blood Count 4.94 10^6/uL (4.1-5.3); Red Cell Distribution Width 13.8 % (12.1-15.1); White Blood Count 6.2 10^3/uL (4.0-10.0)
[2020-06-01 06:23] LABS: D Dimer 0.57 ug/mIFEU (0-0.59)
[2020-06-01 06:35] LABS: Anion Gap 19.9 (5-19); Blood Urea Nitrogen 16 mg/dL (6-20); C Reactive Protein 109.4 mg/L (0.0-4.9); Calcium 8.6 mg/dL (8.5-10.5); Carbon Dioxide 19 mmol/L (22-29); Chloride 102 mmol/L (98-107); Glomerular Filtration Rate 192.7 mL/min (90-130); Glucose 325 mg/dL (65-115); Osmolality Calculated 298 mOsm/kg (285-295); Potassium 3.9 mmol/L (3.5-5.1); Sodium 137 mmol/L (136-145)
[2020-06-01 06:49] LABS: Glucose Point of Care 302 mg/dL (70-110)
[2020-06-01 06:49] LABS: Ferritin 1506 ng/mL (30-400)
--- NOTE | 2020-06-01 08:59 | PM.PN ---
Subjective Subjective: Interval history: Patient was seen and examined this morning, he was not able to sleep last night as his cough was bad. continues to complain of dry cough, cough is worsened with deep breathing and exertion. Has remained afebrile, currently requiring 6 to 7 L of oxygen through HFNC. Vitals/I&O/Wt Last Vital Signs Temp 97.1 F L 06/01/20 07:31 Pulse 106 H 06/01/20 08:52 Resp 22 H 06/01/20 08:50 BP 129/79 06/01/20 07:31 Pulse Ox 93 06/01/20 08:50 05/31/20 06/01/20 06/01/20 22:59 06:59 14:59 Intake Total 490 / 970 Output Total 1150 / 1150 300 / 1450 Balance -660 / -180 -300 / -480 Weight last 48 hrs Weight 149.685 kg Physical Exam Const: COMMON NORMALS: patient oriented x3 HENMT: COMMON NORMALS: normocephalic, atraumatic, hearing grossly normal bilaterally and external ears normal HEAD & SCALP: normocephalic and atraumatic EXTERNAL EAR: Yes external ears normal Eye: COMMON NORMALS: no scleral icterus GENERAL EYE: appearance normal, both eyes and all related structures Chest: COMMONS NORMALS: normal inspection of the chest and normal palpation of entire chest wall CHEST: Yes Symmetrical chest wall rise Resp: COMMON NORMALS: normal respiratory effort, No retractions, No use of accessory muscles and clear to auscultation bilaterally EFFORT & INSPECTION: Yes symmetric chest movement AUSCULTATION: clear to auscultation bilaterally Cardio: COMMON NORMALS: regular rate, regular rhythm, S1 normal heart sound present, S2 normal heart sound present, No gallops present (Cardio), No murmurs present (Cardio), No rub (Cardio) and Peripheral pulses 2+ throughout RATE: regular rate RHYTHM: regular rhythm HEART SOUNDS: S1 normal heart sound present and S2 normal heart sound present PERIPHERAL PULSES: Peripheral pulses 2+ throughout GI: COMMON NORMALS: Normal to inspection, nondistended, normoactive bowel sounds present, Soft to palpation, non-tender, No hepatosplenomegaly present and no masses AUSCULTATION: Yes normoactive bowel sounds PALPATION: Yes Soft to palpation and Yes No hepatosplenomegaly present RECTAL EXAM: Yes deferred Extremity: COMMON NORMALS: no clubbing, cyanosis or edema and no pedal edema Neuro: COMMON NORMALS: patient oriented x3 Data : 06/01/20 05:30 06/01/20 05:30 A&P Assessment and plan (1) Acute respiratory failure: Ac Hypoxic R/F 2/2 COVID PNA /Possible superimposed bacterial PNA. On Remdesivir for 5 day course Dexamethasone 6mg I.V 10 Days course Advair I PUFF BID Levofloxacin 750 mg i.v Daily Trend Inflammatory Markers Lovenox 40 mg sc daily Status: Acute Qualifiers: Respiratory failure complication: hypoxia Qualified Code(s): J96.01 - Acute respiratory failure with hypoxia (2) Pneumonia due to 2019 novel coronavirus: Status: Acute (3) Diabetes: Status: Acute Additional A&P Information Code Status :Full Code DVT PPX: Lovenox 40 m sc daily Attestations Medical Necessity Statement*: Patient needs to be in hospital for management RF 2/2 COVID pneumonia. Coding Level of Care Code Acute Investment Banking Associate for [facility] Fwd Exam Comprehensive Diagnoses Acute respiratory failure J96.01 Respiratory failure complication: hypoxia Pneumonia due to 2019 novel coronavirus U07.1; J12.89 Diabetes E11.9
[2020-06-01 11:49] LABS: Glucose Point of Care 317 mg/dL (70-110)
[2020-06-01] MEDS: dexamethasone 4 mg/mL INJ 6 MG IVP (15:04)
[2020-06-01] MEDS: levofloxacin-dextrose 5 % 750 MG/150 ML PREMIX 100 MG IV (16:42)
[2020-06-01] MEDS: enoxaparin 40 mg/0.4 mL Syringe SUBCUT (16:43)
[2020-06-01 16:50] LABS: Glucose Point of Care 276 mg/dL (70-110)
[2020-06-01] MEDS: remdesivir 100 MG in sodium chloride 0.9% (100 ml) 100 ML IV (18:48)
[2020-06-01] MEDS: guaiFENesin 600 mg Tablet PO (18:48)
--- NOTE | 2020-06-01 19:18 | PC.NURSE ---
shift summary pt has been resting in bed most of shift, pt given education on changing position often and getting up and moving along with deep breathing and coughing to get phlegm out, pt states he understands. no changes this shift.
[2020-06-01 20:42] LABS: Glucose Point of Care 379 mg/dL (70-110)
[2020-06-01] MEDS: insulin glargine 100 units/1 mL 10 UNIT SUBCUT (22:35)
[2020-06-01] MEDS: benzonatate 100 mg Capsule PO (22:44)
[2020-06-01] MEDS: guaiFENesin-dextromethorphan UDC 10 mL 5 ML PO (22:44)
[2020-06-02] VITALS (12 sets, daily range): BP systolic 118–152; BP diastolic 70–89; PULSE 68–112; RESP 16–24; TEMP 36.1–36.7; O2SAT 84–98
[2020-06-02] MEDS: ondansetron 2 mg/ML SDV 2 mL 4 MG IVP (00:23)
[2020-06-02] MEDS: guaiFENesin 600 mg Tablet PO ×2 (08:07→18:27)
[2020-06-02 11:04] LABS: Glucose Point of Care 482 mg/dL (70-110)
[2020-06-02 14:08] LABS: Basophils % 0.2 %; Hematocrit 43.6 % (42.0-52.0); Hemoglobin 13.7 g/dL (11.7-16.6); Lymphocytes # 0.9 10^3/uL (0.8-4.8); Lymphocytes % 14.5 %; Mean Corpuscular HGB Conc 31.4 g/dL (30.0-36.0); Mean Corpuscular Hemoglobin 26.9 pg (28.0-34.0); Mean Corpuscular Volume 85.7 fL (80-94); Mean Platelet Volume 12.1 fL (7.4-10.4); Monocytes # 0.5 10^3/uL (0.2-0.9); Monocytes % 8.1 %; Neutrophils # 4.62 10^3/uL (1.8-7.7); Neutrophils % 76.7 %; Nucleated Red Blood Cells % 0 %; Platelet Count 218 10^3/cmm (130-400); Red Blood Count 5.09 10^6/uL (4.1-5.3); Red Cell Distribution Width 13.7 % (12.1-15.1)
[2020-06-02 14:25] LABS: D Dimer 0.52 ug/mIFEU (0-0.59)
[2020-06-02 14:40] LABS: Anion Gap 17.6 (5-19); Blood Urea Nitrogen 17 mg/dL (6-20); C Reactive Protein 27.3 mg/L (0.0-4.9); Calcium 8.5 mg/dL (8.5-10.5); Carbon Dioxide 21 mmol/L (22-29); Chloride 102 mmol/L (98-107); Glomerular Filtration Rate 192.7 mL/min (90-130); Glucose 286 mg/dL (65-115); Osmolality Calculated 296 mOsm/kg (285-295); Potassium 3.6 mmol/L (3.5-5.1); Sodium 137 mmol/L (136-145)
[2020-06-02 14:45] LABS: Slide Review Slide Review Perform
--- NOTE | 2020-06-02 14:45 | PC.NURSE ---
IV started at 1345 by DIANA Mckee via ultrasound guided imagery. Patient tolerated well.
[2020-06-02 15:01] LABS: Ferritin 1365 ng/mL (30-400)
[2020-06-02] MEDS: enoxaparin 40 mg/0.4 mL Syringe SUBCUT (16:20)
[2020-06-02] MEDS: dexamethasone 4 mg/mL INJ 6 MG IVP (16:20)
[2020-06-02] MEDS: levofloxacin-dextrose 5 % 750 MG/150 ML PREMIX 100 MG IV (16:21)
--- NOTE | 2020-06-02 16:25 | PM.PN ---
Subjective Subjective: Interval history: Patient reports shortness of breath worsening with exertion. Reports cough with mucus and occasionally with small amount of blood-streaked sputum. Denies chills. No nausea or vomiting. No diarrhea. No chest pain. Medications: Reviewed: Yes Medication Review Details: Generic Name Dose Route Start Last Admin Trade Name Freq PRN Reason Stop Dose Admin Acetaminophen 650 mg 05/30/20 15:20 05/31/20 13:58 Acetaminophen 32 5 Mg Tablet PO 650 mg Q6H PRN Administration Mild/Mod Pain Or Temp >/= 101 Benzonatate 100 mg 06/01/20 17:46 06/01/20 22:44 Benzonatate 100 Mg Capsule PO 100 mg TID PRN Administration COUGH Dexamethasone 6 mg 05/31/20 15:30 06/02/20 16:20 Dexamethasone 4 Mg/Ml Inj IVP 6 mg Q24H SHELLI Administration Enoxaparin Sodium 40 mg 05/30/20 16:30 06/02/20 16:20 Enoxaparin 40 Mg /0.4 Ml Syringe SUBCUT 40 mg Q24H SHELLI Administration Guaifenesin 600 mg 06/01/20 18:00 06/02/20 08:07 Guaifenesin 600 Mg Tablet PO 600 mg BID SHELLI Administration Guaifenesin/Dextro methorphan 5 ml 05/30/20 15:23 06/01/20 22:44 Guaifenesin-Dext romethorphan Udc 1 0 Ml PO 5 ml TID PRN Administration COUGH Remdesivir 100 mg/ Sodium 100 mls @ 100 mls /hr 05/31/20 18:00 06/01/20 20:04 Chloride IV 06/03/20 18:59 Infused Q24H SHELLI Infusion Levofloxacin/Dextr ose 750 mg in 150 mls @ 100 mls/hr 05/30/20 16:00 06/02/20 16:21 Levaquin-D5w IV 100 mls/hr Q24H SHELLI Administration Protocol Insulin Aspart 0 unit 05/30/20 18:00 06/02/20 13:00 Insulin Aspart 1 00 Unit/1 Ml SUBCUT 14 unit WM&BEDTIME SHELLI Administration Protocol Insulin Aspart 5 unit 06/01/20 12:00 06/02/20 12:59 Insulin Aspart 1 00 Unit/1 Ml SUBCUT 5 unit WM&BEDTIME SHELLI Administration Ondansetron HCl 4 mg 05/30/20 15:20 06/02/20 00:23 Ondansetron 2 Mg /Ml Sdv 2 Ml IVP 4 mg Q8H PRN Administration vomiting, or N/V if npo Fluticasone/Salmet luisana 1 puff 05/31/20 20:00 06/02/20 08:41 Fluticasone-Salm eterol 250-50 Disk us INHALATION 1 puff BID.RESPIRATORY S CH Administration Vitals/I&O/Wt Last Vital Signs Temp 98.1 F 06/02/20 15:22 Pulse 85 06/02/20 15:22 Resp 20 H 06/02/20 15:22 BP 119/70 06/02/20 15:22 Pulse Ox 96 06/02/20 15:22 06/02/20 06/02/20 06/02/20 06:59 14:59 22:59 Intake Total 250 / 250 Output Total 0 2049 600 / 600 Balance 0 / -720 -350 / -350 Physical Exam Narrative: EXAM NARRATIVE: Awake alert oriented. Mild distress secondary to discomfort from placing venous access. Occasionally coughs. No respiratory distress at rest. Skin is warm and dry. Moist mucous membranes Neck supple. No JVD Lungs bibasilar crackles and decreased breath sounds. No accessory muscle use. Heart S1, S2, regular Abdomen obese, soft, nontender, bowel sounds are present Extremities no peripheral cyanosis or calf tenderness bilaterally Neuro exam is nonfocal. Data : 06/02/20 13:20 06/02/20 13:20 A&P Assessment and plan (1) Acute respiratory failure: Ac Hypoxic R/F 2/2 COVID PNA /Possible superimposed bacterial PNA. On Remdesivir for 5 day course Dexamethasone 6mg I.V 10 Days course Advair I PUFF BID Levofloxacin 750 mg i.v Daily Trend Inflammatory Markers Lovenox 40 mg sc daily Status: Acute Qualifiers: Respiratory failure complication: hypoxia Qualified Code(s): J96.01 - Acute respiratory failure with hypoxia (2) Pneumonia due to 2019 novel coronavirus: Status: Acute (3) Diabetes: Status: Acute Additional A&P Information Code Status :Full Code DVT PPX: Lovenox 40 m sc daily [place] Acute hypoxic respiratory failure secondary to COVID-19 viral pneumonia. Continue remdesivir and steroids. Ordering convalescent plasma. Asked the patient to spend more time proned and start using incentive spirometry. Continue high flow oxygen. Continue monitoring CRP. Hyperglycemia. Significant hyperglycemia due to steroids. Will start increasing Lantus until more optimal control is achieved. DVT prophylaxis. Lovenox. D-dimer is improving. The plan of care was discussed with the patient. He verbalized understanding and agreement. Attestations Medical Necessity Statement*: Patient is still hypoxic. Requires aggressive management. Coding Level of Care Code Acute Division Officer Weapons Department for [facility] Diagnoses Acute respiratory failure J96.01 Respiratory failure complication: hypoxia Pneumonia due to 2019 novel coronavirus U07.1; J12.89 Diabetes E11.9
[2020-06-02 17:45] LABS: Glucose Point of Care 336 mg/dL (70-110)
[2020-06-02] MEDS: remdesivir 100 MG in sodium chloride 0.9% (100 ml) 100 ML IV (18:27)
[2020-06-02 20:28] LABS: Glucose Point of Care 331 mg/dL (70-110)
[2020-06-02] MEDS: insulin glargine 100 units/1 mL 15 UNIT SUBCUT (20:32)
[2020-06-02] MEDS: benzonatate 100 mg Capsule PO (23:21)
[2020-06-02] MEDS: guaiFENesin-dextromethorphan UDC 10 mL 5 ML PO (23:21)
[2020-06-03] VITALS (12 sets, daily range): BP systolic 110–155; BP diastolic 75–86; PULSE 76–127; RESP 18–25; TEMP 35.8–36.7; O2SAT 84–95
[2020-06-03 06:27] LABS: Basophils % 0.3 %; Eosinophils % 0.3 %; Hematocrit 43.4 % (42.0-52.0); Hemoglobin 13.7 g/dL (11.7-16.6); Lymphocytes # 0.7 10^3/uL (0.8-4.8); Lymphocytes % 9.9 %; Mean Corpuscular HGB Conc 31.6 g/dL (30.0-36.0); Mean Corpuscular Hemoglobin 27.1 pg (28.0-34.0); Mean Corpuscular Volume 85.9 fL (80-94); Mean Platelet Volume 12.9 fL (7.4-10.4); Monocytes # 0.4 10^3/uL (0.2-0.9); Monocytes % 5.3 %; Neutrophils # 6.07 10^3/uL (1.8-7.7); Neutrophils % 83.2 %; Nucleated Red Blood Cells % 0 %; Platelet Count 111 10^3/cmm (130-400); Red Blood Count 5.05 10^6/uL (4.1-5.3); Red Cell Distribution Width 13.4 % (12.1-15.1); White Blood Count 7.3 10^3/uL (4.0-10.0)
[2020-06-03 07:05] LABS: Blood Urea Nitrogen 16 mg/dL (6-20); Calcium 8.1 mg/dL (8.5-10.5); Carbon Dioxide 22 mmol/L (22-29); Chloride 104 mmol/L (98-107); Glomerular Filtration Rate 249.3 mL/min (90-130); Glucose 297 mg/dL (65-115); Phosphorus 3.8 mg/dL (2.5-4.5); Sodium 138 mmol/L (136-145)
[2020-06-03 07:12] LABS: Anion Gap 16.2 (5-19); Potassium 4.2 mmol/L (3.5-5.1)
[2020-06-03 07:26] LABS: Estmated Average Glucose 278; Hemoglobin A1C 11.3 % (4.0-6.0)
[2020-06-03 07:49] LABS: Glucose Point of Care 291 mg/dL (70-110)
[2020-06-03 08:23] LABS: C Reactive Protein 11.9 mg/L (0.0-4.9)
[2020-06-03] MEDS: guaiFENesin 600 mg Tablet PO ×2 (08:35→17:04)
[2020-06-03 12:30] LABS: Glucose Point of Care 325 mg/dL (70-110)
--- NOTE | 2020-06-03 13:22 | P.PN_ITS ---
Subjective Subjective: Interval history: Patient reports feeling better today. Reports less shortness of breath and less cough. There is no hemoptysis. Vitals/I&O/Wt Last Vital Signs Temp 97.4 F L 06/03/20 08:00 Pulse 100 06/03/20 08:24 Resp 22 H 06/03/20 08:23 BP 131/86 06/03/20 08:00 Pulse Ox 94 06/03/20 08:23 06/02/20 06/03/20 06/03/20 22:59 06:59 14:59 Intake Total 590 / 840 240 / 240 Output Total 375 / 975 650 / 1625 Balance 215 / -135 -650 / -785 240 / 240 Physical Exam Narrative: EXAM NARRATIVE: Awake alert oriented. No acute distress. Skin is warm and dry. Moist mucous membranes Neck supple. No JVD Lungs bibasilar crackles and decreased breath sounds. No respiratory distress. Heart S1, S2, regular Abdomen obese, soft, nontender, bowel sounds are present Extremities no peripheral cyanosis or calf tenderness bilaterally Neuro exam is nonfocal. Data : 06/03/20 06:05 06/03/20 06:05 A&P Assessment and plan (1) Acute respiratory failure: Ac Hypoxic R/F 2/2 COVID PNA /Possible superimposed bacterial PNA. On Remdesivir for 5 day course Dexamethasone 6mg I.V 10 Days course Advair I PUFF BID Levofloxacin 750 mg i.v Daily Trend Inflammatory Markers Lovenox 40 mg sc daily Status: Acute Qualifiers: Respiratory failure complication: hypoxia Qualified Code(s): J96.01 - Acute respiratory failure with hypoxia (2) Pneumonia due to 2019 novel coronavirus: Status: Acute (3) Diabetes: Status: Acute Additional A&P Information Code Status :Full Code DVT PPX: Lovenox 40 m sc daily [place] Acute hypoxic respiratory failure secondary to COVID-19 viral pneumonia. Continue remdesivir and steroids. CRP is improving. Ended up not receiving convalescent plasma. Will not reorder. Asked the patient again to spend more time proned and start using incentive spirometry. Continue high flow oxygen. Currently on 8 L/min. Continue monitoring CRP. Hyperglycemia. Significant hyperglycemia due to steroids. Will increase Lantus until more optimal control is achieved. Thrombocytopenia. No evidence of thrombosis. Doubt HIT. We will stop Lovenox and continue monitoring him. We will recheck CBC tomorrow. Will consider alternative ways of DVT prophylaxis. DVT prophylaxis. Teds and SCDs for now. See above The plan of care was discussed with the patient. He verbalized understanding and agreement. Attestations Medical Necessity Statement*: Remains in the hospital with acute hypoxic respiratory failure secondary to COVID-19. Requires intensive treatments and monitoring. Coding Level of Care Code Acute Manager Freelance for [facility] Diagnoses Acute respiratory failure J96.01 Respiratory failure complication: hypoxia Pneumonia due to 2019 novel coronavirus U07.1; J12.89 Diabetes E11.9
[2020-06-03] MEDS: dexamethasone 4 mg/mL INJ 6 MG IVP (16:56)
[2020-06-03] MEDS: levofloxacin-dextrose 5 % 750 MG/150 ML PREMIX 100 MG IV (16:57)
[2020-06-03 17:54] LABS: Glucose Point of Care 309 mg/dL (70-110)
[2020-06-03] MEDS: remdesivir 100 MG in sodium chloride 0.9% (100 ml) 100 ML IV (18:39)
--- NOTE | 2020-06-03 20:04 | PC.NURSE ---
PT PLAYING ON CELL PHONE.
[2020-06-03 20:40] LABS: Glucose Point of Care 346 mg/dL (70-110)
[2020-06-03] MEDS: insulin glargine 100 units/1 mL 15 UNIT SUBCUT (22:26)
[2020-06-03] MEDS: guaiFENesin-dextromethorphan UDC 10 mL 5 ML PO (22:27)
[2020-06-03] MEDS: benzonatate 100 mg Capsule PO (22:28)
[2020-06-04] VITALS (9 sets, daily range): BP systolic 136–146; BP diastolic 77–85; PULSE 78–110; RESP 17–20; TEMP 36–36.7; O2SAT 93–96
--- NOTE | 2020-06-04 04:34 | XR_ITS ---
WS: [id number] Exam: XR chest 1V portable [id number] Date/Time of Exam: 06/04/2020 6:09 AM Reason For Exam: COVID PNA, HYPOXIA Comparison 05/30/2020. Patchy groundglass infiltrates are identified throughout the lower two thirds of both lungs showing l ittle change. The lungs remain fully inflated. Normal cardiomediastinal structures and bony elements. No pleural effusions. XR/XR chest 1V portable [id number] IMPRESSION: 1. Widespread patchy groundglass infiltrates showing little change since the la st exam.
--- NOTE | 2020-06-04 06:24 | PC.NURSE ---
This nurse was unable to pull blood from patient's IV's. Lab stuck patient once then he refused.
[2020-06-04 06:41] LABS: Glucose Point of Care 277 mg/dL (70-110)
[2020-06-04] MEDS: guaiFENesin 600 mg Tablet PO ×2 (08:24→17:32)
--- NOTE | 2020-06-04 09:21 | PC.NURSE ---
Attempted to draw labs on patient again at this time. Patient states, If you can not get it out of my IV I am not going to let you stick me again. I just can't I was stuck over and hour last time. I am not going to do that again. Attempted to draw from both IV's. No blood return noted. Patient refuses to let this filing writer stick him to obtain blood.
[2020-06-04 11:06] LABS: Glucose Point of Care 354 mg/dL (70-110)
[2020-06-04 12:37] LABS: Basophils % 0.3 %; Eosinophils % 0.3 %; Hematocrit 46.2 % (42.0-52.0); Hemoglobin 14.9 g/dL (11.7-16.6); Lymphocytes # 1.2 10^3/uL (0.8-4.8); Lymphocytes % 16.6 %; Mean Corpuscular HGB Conc 32.3 g/dL (30.0-36.0); Mean Corpuscular Hemoglobin 27.3 pg (28.0-34.0); Mean Corpuscular Volume 84.8 fL (80-94); Mean Platelet Volume 11.6 fL (7.4-10.4); Monocytes # 0.4 10^3/uL (0.2-0.9); Monocytes % 5.7 %; Neutrophils # 5.58 10^3/uL (1.8-7.7); Neutrophils % 75.6 %; Nucleated Red Blood Cells % 0 %; Platelet Count 267 10^3/cmm (130-400); Red Blood Count 5.45 10^6/uL (4.1-5.3); Red Cell Distribution Width 13.2 % (12.1-15.1); White Blood Count 7.4 10^3/uL (4.0-10.0)
[2020-06-04 12:49] LABS: D Dimer 0.82 ug/mIFEU (0-0.59)
[2020-06-04 12:54] LABS: Alanine Aminotransferase 22 U/L (0-41); Albumin Level 3.4 g/dL (3.5-5.2); Alkaline Phosphatase 55 IU/L (40-130); Anion Gap 16.3 (5-19); Aspartate Amino Transferase 14 U/L (0-40); Carbon Dioxide 25 mmol/L (22-29); Chloride 100 mmol/L (98-107); Globulin 3.7 g/dL (1.3-4.6); Glucose 276 mg/dL (65-115); Potassium 3.3 mmol/L (3.5-5.1); Sodium 138 mmol/L (136-145); Total Bilirubin 0.4 mg/dL (0.15-1.2); Total Protein 7.1 g/dL (6.6-8.7)
[2020-06-04 13:18] LABS: Blood Urea Nitrogen 13 mg/dL (6-20); Calcium 8.5 mg/dL (8.5-10.5); Glomerular Filtration Rate 192.7 mL/min (90-130); Magnesium 2.1 mg/dL (1.7-2.3); Osmolality Calculated 296 mOsm/kg (285-295)
--- NOTE | 2020-06-04 14:11 | P.PN_ITS ---
Subjective Subjective: Interval history: Respiratory smith the patient is doing well. Currently on 7 L/min nasal cannula oxygen. Reports improved shortness of breath and cough. Denies fevers or chills. No nausea vomiting. No diarrhea. Medications: Reviewed: Yes Medication Review Details: Generic Name Dose Route Start Last Admin Trade Name Freq PRN Reason Stop Dose Admin Acetaminophen 650 mg 05/30/20 15:20 05/31/20 13:58 Acetaminophen 32 5 Mg Tablet PO 650 mg Q6H PRN Administration Mild/Mod Pain Or Temp >/= 101 Benzonatate 100 mg 06/01/20 17:46 06/03/20 22:28 Benzonatate 100 Mg Capsule PO 100 mg TID PRN Administration COUGH Dexamethasone 6 mg 05/31/20 15:30 06/03/20 16:56 Dexamethasone 4 Mg/Ml Inj IVP 6 mg Q24H SHELLI Administration Guaifenesin 600 mg 06/01/20 18:00 06/04/20 08:24 Guaifenesin 600 Mg Tablet PO 600 mg BID SHELLI Administration Guaifenesin/Dextro methorphan 5 ml 05/30/20 15:23 06/03/20 22:27 Guaifenesin-Dext romethorphan Udc 1 0 Ml PO 5 ml TID PRN Administration COUGH Levofloxacin/Dextr ose 750 mg in 150 mls @ 100 mls/hr 05/30/20 16:00 06/03/20 19:02 Levaquin-D5w IV Infused Q24H SHELLI Infusion Protocol Insulin Aspart 0 unit 05/30/20 18:00 06/04/20 12:08 Insulin Aspart 1 00 Unit/1 Ml SUBCUT 12 unit WM&BEDTIME SHELLI Administration Protocol Insulin Aspart 5 unit 06/01/20 12:00 06/04/20 12:08 Insulin Aspart 1 00 Unit/1 Ml SUBCUT 5 unit WM&BEDTIME SHELLI Administration Ondansetron HCl 4 mg 05/30/20 15:20 06/02/20 00:23 Ondansetron 2 Mg /Ml Sdv 2 Ml IVP 4 mg Q8H PRN Administration vomiting, or N/V if npo Fluticasone/Salmet luisana 1 puff 05/31/20 20:00 06/04/20 08:52 Fluticasone-Salm eterol 250-50 Disk us INHALATION 1 puff BID.RESPIRATORY S CH Administration Vitals/I&O/Wt Last Vital Signs Temp 98.1 F 06/04/20 11:24 Pulse 79 06/04/20 11:24 Resp 20 H 06/04/20 11:24 BP 136/83 06/04/20 11:24 Pulse Ox 94 06/04/20 11:24 06/03/20 06/04/20 06/04/20 22:59 06:59 14:59 Intake Total 696 / 1176 200 / 200 Output Total 650 / 650 850 / 1500 Balance 46 / 526 -850 / -324 200 / 200 Physical Exam Narrative: EXAM NARRATIVE: Awake alert oriented. No acute distress. Skin is warm and dry. Moist mucous membranes Neck supple. No JVD Lungs bibasilar crackles and decreased breath sounds. No respiratory distress. Heart S1, S2, regular Abdomen obese, soft, nontender, bowel sounds are present Extremities no peripheral cyanosis or calf tenderness bilaterally Neuro exam is nonfocal. Data : 06/04/20 12:18 06/04/20 12:18 A&P Assessment and plan (1) Acute respiratory failure: Ac Hypoxic R/F 2/2 COVID PNA /Possible superimposed bacterial PNA. On Remdesivir for 5 day course Dexamethasone 6mg I.V 10 Days course Advair I PUFF BID Levofloxacin 750 mg i.v Daily Trend Inflammatory Markers Lovenox 40 mg sc daily Status: Acute Qualifiers: Respiratory failure complication: hypoxia Qualified Code(s): J96.01 - Acute respiratory failure with hypoxia (2) Pneumonia due to 2019 novel coronavirus: Status: Acute (3) Diabetes: Status: Acute Additional A&P Information Code Status :Full Code DVT PPX: Lovenox 40 m sc daily [place] Acute hypoxic respiratory failure secondary to COVID-19 viral pneumonia. Completed remdesivir. Received convalescent plasma yesterday. Continuing dexamethasone. Asked again the patient again to spend more time proned and co ntinue using incentive spirometry. Continue high flow oxygen. Currently on 7 L/min. Continue monitoring CRP. Hyperglycemia. Significant hyperglycemia due to steroids. Will increase Lantus until more optimal control is achieved. Thrombocytopenia. No evidence of thrombosis. Doubt HIT. Resolved. Could have been a lab error. Will resume Lovenox. DVT prophylaxis. Lovenox. The plan of care was discussed with the patient. He verbalized understanding and agreement. Attestations Medical Necessity Statement*: Still hypoxic. Requires high flow oxygen. Coding Level of Care Code Acute Retail Customer Service Specialist for [facility] Fwd Diagnoses Acute respiratory failure J96.01 Respiratory failure complication: hypoxia Pneumonia due to 2019 novel coronavirus U07.1; J12.89 Diabetes E11.9
[2020-06-04] MEDS: enoxaparin 40 mg/0.4 mL Syringe SUBCUT (15:25)
[2020-06-04] MEDS: levofloxacin-dextrose 5 % 750 MG/150 ML PREMIX 100 MG IV (15:25)
[2020-06-04] MEDS: dexamethasone 4 mg/mL INJ 6 MG IVP (15:29)
[2020-06-04 16:54] LABS: Glucose Point of Care 282 mg/dL (70-110)
--- NOTE | 2020-06-04 19:03 | PC.NURSE ---
Report to Jamir DAWKINS at this time.
[2020-06-04 20:57] LABS: Glucose Point of Care 422 mg/dL (70-110)
[2020-06-04] MEDS: insulin glargine 100 units/1 mL 20 UNIT SUBCUT (20:59)
[2020-06-05] VITALS (10 sets, daily range): BP systolic 130–157; BP diastolic 76–88; PULSE 67–107; RESP 18–21; TEMP 35.9–37.1; O2SAT 91–98
[2020-06-05 06:29] LABS: Basophils % 0.5 %; Eosinophils # 0.1 10^3/uL (0.0-0.8); Eosinophils % 0.8 %; Hematocrit 44.8 % (42.0-52.0); Hemoglobin 14.6 g/dL (11.7-16.6); Lymphocytes # 1.2 10^3/uL (0.8-4.8); Lymphocytes % 14.5 %; Mean Corpuscular HGB Conc 32.6 g/dL (30.0-36.0); Mean Corpuscular Hemoglobin 27.7 pg (28.0-34.0); Mean Corpuscular Volume 84.8 fL (80-94); Mean Platelet Volume 11.4 fL (7.4-10.4); Monocytes # 0.5 10^3/uL (0.2-0.9); Monocytes % 5.8 %; Neutrophils # 6.45 10^3/uL (1.8-7.7); Neutrophils % 76.3 %; Nucleated Red Blood Cells % 0 %; Platelet Count 242 10^3/cmm (130-400); Red Blood Count 5.28 10^6/uL (4.1-5.3); Red Cell Distribution Width 13.2 % (12.1-15.1); White Blood Count 8.5 10^3/uL (4.0-10.0)
[2020-06-05 06:47] LABS: Albumin Level 3.5 g/dL (3.5-5.2); Anion Gap 15.5 (5-19); Blood Urea Nitrogen 13 mg/dL (6-20); Calcium 8.2 mg/dL (8.5-10.5); Carbon Dioxide 25 mmol/L (22-29); Chloride 101 mmol/L (98-107); Glomerular Filtration Rate 156.1 mL/min (90-130); Glucose 218 mg/dL (65-115); Phosphorus 3.5 mg/dL (2.5-4.5); Potassium 3.5 mmol/L (3.5-5.1); Sodium 138 mmol/L (136-145)
[2020-06-05 07:09] LABS: Glucose Point of Care 220 mg/dL (70-110)
[2020-06-05] MEDS: guaiFENesin 600 mg Tablet PO ×2 (08:04→17:21)
[2020-06-05 10:49] LABS: Glucose Point of Care 258 mg/dL (70-110)
--- NOTE | 2020-06-05 11:51 | P.PN_ITS ---
Subjective Subjective: Interval history: Doing better. Oxygen demand is improving. Reports improved shortness of breath which is mainly when ambulates. Denies chest pain. No hemoptysis. No chills. No nausea or vomiting. No diarrhea. Medications: Reviewed: Yes Medication Review Details: Generic Name Dose Route Start Last Admin Trade Name Freq PRN Reason Stop Dose Admin Acetaminophen 650 mg 05/30/20 15:20 05/31/20 13:58 Acetaminophen 32 5 Mg Tablet PO 650 mg Q6H PRN Administration Mild/Mod Pain Or Temp >/= 101 Benzonatate 100 mg 06/01/20 17:46 06/03/20 22:28 Benzonatate 100 Mg Capsule PO 100 mg TID PRN Administration COUGH Dexamethasone 6 mg 05/31/20 15:30 06/04/20 15:29 Dexamethasone 4 Mg/Ml Inj IVP 6 mg Q24H SHELLI Administration Enoxaparin Sodium 40 mg 06/04/20 14:30 06/04/20 15:25 Enoxaparin 40 Mg /0.4 Ml Syringe SUBCUT 40 mg Q24H SHELLI Administration Guaifenesin 600 mg 06/01/20 18:00 06/05/20 08:04 Guaifenesin 600 Mg Tablet PO 600 mg BID SHELLI Administration Guaifenesin/Dextro methorphan 5 ml 05/30/20 15:23 06/03/20 22:27 Guaifenesin-Dext romethorphan Udc 1 0 Ml PO 5 ml TID PRN Administration COUGH Levofloxacin/Dextr ose 750 mg in 150 mls @ 100 mls/hr 05/30/20 16:00 06/04/20 16:55 Levaquin-D5w IV 06/05/20 17:29 Infused Q24H [facility] Infusion Protocol Insulin Aspart 0 unit 05/30/20 18:00 06/05/20 08:04 Insulin Aspart 1 00 Unit/1 Ml SUBCUT 4 unit WM&BEDTIME SHELLI Administration Protocol Insulin Aspart 5 unit 06/01/20 12:00 06/05/20 08:04 Insulin Aspart 1 00 Unit/1 Ml SUBCUT 5 unit WM&BEDTIME SHELLI Administration Insulin Glargine 20 unit 06/04/20 21:00 06/04/20 20:59 Insulin Glargine 100 Units/1 Ml SUBCUT 20 unit BEDTIME SHELLI Administration Ondansetron HCl 4 mg 05/30/20 15:20 06/02/20 00:23 Ondansetron 2 Mg /Ml Sdv 2 Ml IVP 4 mg Q8H PRN Administration vomiting, or N/V if npo Fluticasone/Salmet luisana 1 puff 05/31/20 20:00 06/05/20 08:56 Fluticasone-Salm eterol 250-50 Disk us INHALATION 1 puff BID.RESPIRATORY S CH Administration Vitals/I&O/Wt Last Vital Signs Temp 98.8 F 06/05/20 11:35 Pulse 100 06/05/20 11:35 Resp 19 H 06/05/20 11:35 BP 143/76 06/05/20 11:35 Pulse Ox 97 06/05/20 11:35 06/04/20 06/05/20 06/05/20 22:59 06:59 14:59 Intake Total 150 / 350 480 / 830 150 / 150 Output Total 1050 / 1550 550 / 2100 700 / 700 Balance -900 / -1200 -70 / -1270 -550 / -550 Physical Exam Narrative: EXAM NARRATIVE: Awake alert oriented. No acute distress. Skin is warm and dry. Moist mucous membranes Neck supple. No JVD Lungs bibasilar crackles and decreased breath sounds. No respiratory distress. Heart S1, S2, regular Abdomen obese, soft, nontender, bowel sounds are present Extremities no peripheral cyanosis or calf tenderness bilaterally Neuro exam is nonfocal. Data : 06/05/20 06:20 06/05/20 06:20 A&P Assessment and plan (1) Acute respiratory failure: Ac Hypoxic R/F 2/2 COVID PNA /Possible superimposed bacterial PNA. On Remdesivir for 5 day course Dexamethasone 6mg I.V 10 Days course Advair I PUFF BID Levofloxacin 750 mg i.v Daily Trend Inflammatory Markers Lovenox 40 mg sc daily Status: Acute Qualifiers: Respiratory failure complication: hypoxia Qualified Code(s): J96.01 - Acute respiratory failure with hypoxia (2) Pneumonia due to 2019 novel coronavirus: Status: Acute (3) Diabetes: Status: Acute Additional A&P Information Code Status :Full Code DVT PPX: Lovenox 40 m sc daily [place] Acute hypoxic respiratory failure secondary to COVID-19 viral pneumonia. Completed remdesivir. Received convalescent plasma. Continuing dexamethasone. Continue spending some time pronned and continue using incentive spirometry. Continue supplemental oxygen. Currently on 3L/min. Continue monitoring CRP. Hyperglycemia. Significant hyperglycemia due to steroids. Will increase Lantus until more optimal control is achieved. Thrombocytopenia. No evidence of thrombosis. Doubt HIT. Resolved. Could have been a lab error. Will continue Lovenox. DVT prophylaxis. Lovenox. The plan of care was discussed with the patient. He verbalized understanding and agreement. Attestations Medical Necessity Statement*: Still hypoxic. Ordering home O2 evaluation. However I do not think that he would be safe to be discharged home until Tuesday. Coding Level of Care Code Acute Engineering Assistant for [facility] Fwd Diagnoses Acute respiratory failure J96.01 Respiratory failure complication: hypoxia Pneumonia due to 2019 novel coronavirus U07.1; J12.89 Diabetes E11.9
[2020-06-05] MEDS: dexamethasone 4 mg/mL INJ 6 MG IVP (14:40)
[2020-06-05] MEDS: enoxaparin 40 mg/0.4 mL Syringe SUBCUT (14:40)
[2020-06-05 17:08] LABS: Glucose Point of Care 331 mg/dL (70-110)
[2020-06-05] MEDS: levofloxacin-dextrose 5 % 750 MG/150 ML PREMIX 100 MG IV (17:23)
--- NOTE | 2020-06-05 19:03 | PC.NURSE ---
Report to Cal[employer] PRE SCHOOL MANAGER at this time.
[2020-06-05 21:04] LABS: Glucose Point of Care 403 mg/dL (70-110)
[2020-06-05] MEDS: insulin glargine 100 units/1 mL 25 UNIT SUBCUT (21:51)
[2020-06-06] VITALS (10 sets, daily range): BP systolic 119–164; BP diastolic 72–106; PULSE 71–100; RESP 16–22; TEMP 36.4–36.9; O2SAT 90–94
[2020-06-06 07:25] LABS: Glucose Point of Care 207 mg/dL (70-110)
[2020-06-06] MEDS: guaiFENesin 600 mg Tablet PO ×2 (08:43→17:51)
[2020-06-06 12:01] LABS: Glucose Point of Care 280 mg/dL (70-110)
--- NOTE | 2020-06-06 12:02 | P.PN_ITS ---
Subjective Subjective: Interval history: Continues improving. No significant events. Shortness of breath is improving. No chest pain. No fever or chills. No nausea vomiting. No diarrhea. Vitals/I&O/Wt Last Vital Signs Temp 97.7 F 06/06/20 11:56 Pulse 71 06/06/20 11:56 Resp 16 06/06/20 11:56 BP 164/106 06/06/20 11:56 Pulse Ox 94 06/06/20 11:56 06/05/20 06/06/20 06/06/20 22:59 06:59 14:59 Intake Total 350 / 700 360 / 360 Output Total 400 / 1100 1475 / 2575 Balance -50 / -400 -1475 / -1875 360 / 360 Physical Exam Narrative: EXAM NARRATIVE: Awake alert oriented. No acute distress. Skin is warm and dry. Moist mucous membranes Neck supple. No JVD Lungs bibasilar crackles and decreased breath sounds, improved. No respiratory distress. Heart S1, S2, regular Abdomen obese, soft, nontender, bowel sounds are present Extremities no peripheral cyanosis or calf tenderness bilaterally Neuro exam is nonfocal. Data : 06/05/20 06:20 06/05/20 06:20 A&P Assessment and plan (1) Acute respiratory failure: Ac Hypoxic R/F 2/2 COVID PNA /Possible superimposed bacterial PNA. On Remdesivir for 5 day course Dexamethasone 6mg I.V 10 Days course Advair I PUFF BID Levofloxacin 750 mg i.v Daily Trend Inflammatory Markers Lovenox 40 mg sc daily Status: Acute Qualifiers: Respiratory failure complication: hypoxia Qualified Code(s): J96.01 - Acute respiratory failure with hypoxia (2) Pneumonia due to 2019 novel coronavirus: Status: Acute (3) Diabetes: Status: Acute Additional A&P Information Code Status :Full Code DVT PPX: Lovenox 40 m sc daily [place] Acute hypoxic respiratory failure secondary to COVID-19 viral pneumonia. Compl eted remdesivir. Received convalescent plasma. Continuing dexamethasone. Continue spending some time pronned and continue using incentive spirometry. Continue supplemental oxygen. Currently on 3L/min. Continue monitoring CRP. Diabetes. Untreated. Uncontrolled hyperglycemia. The patient's was told before about diabetes but was not able to afford medications. He tried diet and weight management. I counseled him. At this point he will need to be on insulin. Switching to NPH which can be more affordable will be discharging. Continue insulin sliding scale. Diabetes education will be provided. Discussed with nursing staff. They will also teach him how to check blood sugar level and calculate insulin dose and administer insulin. Case management will work on outpatient resources to refer him to for long-term management. Thrombocytopenia. No evidence of thrombosis. Doubt HIT. Resolved. Could have been a lab error. Will continue Lovenox. DVT prophylaxis. Lovenox. The plan of care was discussed with the patient. He verbalized understanding and agreement. Attestations Medical Necessity Statement*: Still significantly hypoxic with cough with pneumonia. Coding Level of Care Code Acute Deputy Commonwealth'S Attorney for [facility] Fw Diagnoses Acute respiratory failure J96.01 Respiratory failure complication: hypoxia Pneumonia due to 2019 novel coronavirus U07.1; J12.89 Diabetes E11.9
[2020-06-06] MEDS: enoxaparin 40 mg/0.4 mL Syringe SUBCUT (15:24)
[2020-06-06] MEDS: dexamethasone 4 mg/mL INJ 6 MG IVP (15:28)
[2020-06-06 17:33] LABS: Glucose Point of Care 306 mg/dL (70-110)
[2020-06-06] MEDS: insulin nph human 100 units/1 mL 15 UNIT SUBCUT (17:51)
[2020-06-06 20:19] LABS: Glucose Point of Care 358 mg/dL (70-110)
[2020-06-07] VITALS (11 sets, daily range): BP systolic 120–158; BP diastolic 48–92; PULSE 76–95; RESP 18–20; TEMP 36.3–36.8; O2SAT 90–94
[2020-06-07 06:26] LABS: Glucose Point of Care 200 mg/dL (70-110)
--- NOTE | 2020-06-07 06:48 | PC.NURSE ---
Patient refusing morning labs. Stated If my Iv doesn't draw I'm not getting stuck anymore .
[2020-06-07] MEDS: insulin nph human 100 units/1 mL 15 UNIT SUBCUT (07:14)
[2020-06-07] MEDS: lisinopril 5 mg Tablet PO (08:22)
[2020-06-07] MEDS: guaiFENesin 600 mg Tablet PO ×2 (08:22→17:24)
[2020-06-07 11:03] LABS: Glucose Point of Care 232 mg/dL (70-110)
[2020-06-07] MEDS: enoxaparin 40 mg/0.4 mL Syringe SUBCUT (13:41)
[2020-06-07] MEDS: dexamethasone 4 mg/mL INJ 6 MG IVP (15:22)
--- NOTE | 2020-06-07 16:30 | P.PN_ITS ---
Subjective Subjective: Interval history: Refused labs. Does not want any blood draws. Overall condition is unchanged. No shortness of breath with supplemental oxygen. Today he is on 4 L. No chills. No nausea or vomiting. No distress. Medications: Reviewed: Yes Medication Review Details: Generic Name Dose Route Start Last Admin Trade Name Freq PRN Reason Stop Dose Admin Acetaminophen 650 mg 05/30/20 15:20 05/31/20 13:58 Acetaminophen 32 5 Mg Tablet PO 650 mg Q6H PRN Administration Mild/Mod Pain Or Temp >/= 101 Benzonatate 100 mg 06/01/20 17:46 06/03/20 22:28 Benzonatate 100 Mg Capsule PO 100 mg TID PRN Administration COUGH Dexamethasone 6 mg 05/31/20 15:30 06/07/20 15:22 Dexamethasone 4 Mg/Ml Inj IVP 6 mg Q24H SHELLI Administration Enoxaparin Sodium 40 mg 06/04/20 14:30 06/07/20 13:41 Enoxaparin 40 Mg /0.4 Ml Syringe SUBCUT 40 mg Q24H SHELLI Administration Guaifenesin 600 mg 06/01/20 18:00 06/07/20 08:22 Guaifenesin 600 Mg Tablet PO 600 mg BID SHELLI Administration Guaifenesin/Dextro methorphan 5 ml 05/30/20 15:23 06/03/20 22:27 Guaifenesin-Dext romethorphan Udc 1 0 Ml PO 5 ml TID PRN Administration COUGH Insulin Aspart 0 unit 05/30/20 18:00 06/07/20 11:25 Insulin Aspart 1 00 Unit/1 Ml SUBCUT 6 unit WM&BEDTIME SHELLI Administration Protocol Insulin Aspart 5 unit 06/01/20 12:00 06/07/20 11:25 Insulin Aspart 1 00 Unit/1 Ml SUBCUT 5 unit WM&BEDTIME SHELLI Administration Lisinopril 5 mg 06/07/20 09:00 06/07/20 08:22 Lisinopril 5 Mg Tablet PO 5 mg DAILY SHELLI Administration Ondansetron HCl 4 mg 05/30/20 15:20 06/02/20 00:23 Ondansetron 2 Mg /Ml Sdv 2 Ml IVP 4 mg Q8H PRN Administration vomiting, or N/V if npo Fluticasone/Salmet luisana 1 puff 05/31/20 20:00 06/07/20 08:27 Fluticasone-Salm eterol 250-50 Disk us INHALATION 1 puff BID.RESPIRATORY S CH Administration Vitals/I&O/Wt Last Vital Signs Temp 98.0 F 06/07/20 15:57 Pulse 76 06/07/20 15:57 Resp 20 H 06/07/20 15:57 BP 145/85 06/07/20 15:57 Pulse Ox 94 06/07/20 15:57 06/07/20 06/07/20 06/07/20 06:59 14:59 22:59 Intake Total 420 / 1500 760 / 760 Balance 420 / 1500 760 / 760 Physical Exam Narrative: EXAM NARRATIVE: Physical exam findings are discussed with the nurse: no acute distress. Mood and affect are appropriate. Decreased breath sounds bibasilarly Abdomen soft Skin is warm and dry Data : 06/05/20 06:20 06/05/20 06:20 A&P Assessment and plan (1) Acute respiratory failure: Ac Hypoxic R/F 2/2 COVID PNA /Possible superimposed bacterial PNA. On Remdesivir for 5 day course Dexamethasone 6mg I.V 10 Days course Advair I PUFF BID Levofloxacin 750 mg i.v Daily Trend Inflammatory Markers Lovenox 40 mg sc daily Status: Acute Qualifiers: Respiratory failure complication: hypoxia Qualified Code(s): J96.01 - Acute respiratory failure with hypoxia (2) Pneumonia due to 2019 novel coronavirus: Status: Acute (3) Diabetes: Status: Acute Additional A&P Information Code Status :Full Code DVT PPX: Lovenox 40 m sc daily [place] Acute hypoxic respiratory failure secondary to COVID-19 viral pneumonia. Completed remdesivir. Received convalescent plasma. Continuing dexamethasone. Continue spending some time pronned and continue using incentive spirometry. Continue supplemental oxygen. Today on 4 L/min. Continue monitoring CRP. Will repeat chest x-ray tomorrow morning. Diabetes. Untreated. Uncontrolled hyperglycemia. The patient's was told before about diabetes but was not able to afford medications. He tried diet and weight management. I counseled him. At this point he will need to be on in sulin. We will increase NPH dose today again. Thrombocytopenia. No evidence of thrombosis. Doubt HIT. Resolved. Could have been a lab error. Will continue Lovenox. DVT prophylaxis. Lovenox. Discussed with the nurse. Attestations Medical Necessity Statement*: Still hypoxic. Requires supplemental oxygen. Coding Level of Care Code Acute Gravity Prospector for [facility] Fwd Diagnoses Acute respiratory failure J96.01 Respiratory failure complication: hypoxia Pneumonia due to 2019 novel coronavirus U07.1; J12.89 Diabetes E11.9
[2020-06-07 16:58] LABS: Glucose Point of Care 232 mg/dL (70-110)
[2020-06-07] MEDS: insulin nph human 100 units/1 mL 20 UNIT SUBCUT (17:24)
[2020-06-07 20:20] LABS: Glucose Point of Care 377 mg/dL (70-110)
[2020-06-08] VITALS (8 sets, daily range): BP systolic 128–151; BP diastolic 63–84; PULSE 65–99; RESP 16–19; TEMP 36.1–36.8; O2SAT 85–94
--- NOTE | 2020-06-08 06:00 | XRR_ITS ---
PROCEDURE INFORMATION: Exam: XR Chest Exam date and time: 06/08/2020 5:04 AM Age: 30 years old Clinical indication: Condition or disease; Other: Covid+; Additional info: Pna TECHNIQUE: Imaging protocol: XR of the chest Views: 1 view. COMPARISON: CR XR chest 1V portable [id number] 06/04/2020 6:18 AM FINDINGS: Lungs: Extensive bilateral pulmonary infiltrates are present which are unchanged since the previous chest x-ray. This is consistent with history of: The pneumonia. Pleural spaces: Unremarkable. No pleural effusion. No pneumothorax. Heart/Mediastinum: Unremarkable. No cardiomegaly. Bones/joints: Unremarkable. XR/XR chest 1V portable [id number] IMPRESSION: Bilateral pneumonia unchanged.
[2020-06-08 06:42] LABS: Glucose Point of Care 185 mg/dL (70-110)
[2020-06-08] MEDS: lisinopril 5 mg Tablet PO (08:29)
[2020-06-08] MEDS: guaiFENesin 600 mg Tablet PO ×2 (08:29→18:00)
[2020-06-08] MEDS: insulin nph human 100 units/1 mL 20 UNIT SUBCUT (08:30)
--- NOTE | 2020-06-08 10:37 | P.PN_ITS ---
Subjective Subjective: Interval history: The patient reports feeling about the same. No shortness of breath with supplemental oxygen at rest. Denies chest pain or palpitations. No chills. No nausea or vomiting. Cough is improving. He is very frustrated by the fact that he had to stay so many days in the hospital. He is worried about hospital bills. He states that he has decided to leave tomorrow whether he is medically cleared or not. He has refused blood test for last several days. Medications: Reviewed: Yes Medication Review Details: Generic Name Dose Route Start Last Admin Trade Name Freq PRN Reason Stop Dose Admin Acetaminophen 650 mg 05/30/20 15:20 05/31/20 13:58 Acetaminophen 32 5 Mg Tablet PO 650 mg Q6H PRN Administration Mild/Mod Pain Or Temp >/= 101 Benzonatate 100 mg 06/01/20 17:46 06/03/20 22:28 Benzonatate 100 Mg Capsule PO 100 mg TID PRN Administration COUGH Dexamethasone 6 mg 05/31/20 15:30 06/07/20 15:22 Dexamethasone 4 Mg/Ml Inj IVP 6 mg Q24H SHELLI Administration Enoxaparin Sodium 40 mg 06/04/20 14:30 06/07/20 13:41 Enoxaparin 40 Mg /0.4 Ml Syringe SUBCUT 40 mg Q24H SHELLI Administration Guaifenesin 600 mg 06/01/20 18:00 06/08/20 08:29 Guaifenesin 600 Mg Tablet PO 600 mg BID SHELLI Administration Guaifenesin/Dextro methorphan 5 ml 05/30/20 15:23 06/03/20 22:27 Guaifenesin-Dext romethorphan Udc 1 0 Ml PO 5 ml TID PRN Administration COUGH Insulin Aspart 0 unit 05/30/20 18:00 06/08/20 08:30 Insulin Aspart 1 00 Unit/1 Ml SUBCUT 4 unit WM&BEDTIME SHELLI Administration Protocol Insulin Aspart 5 unit 06/01/20 12:00 06/08/20 08:29 Insulin Aspart 1 00 Unit/1 Ml SUBCUT 5 unit WM&BEDTIME SHELLI Administration Lisinopril 5 mg 06/07/20 09:00 06/08/20 08:29 Lisinopril 5 Mg Tablet PO 5 mg DAILY SHELLI Administration Ondansetron HCl 4 mg 05/30/20 15:20 06/02/20 00:23 Ondansetron 2 Mg /Ml Sdv 2 Ml IVP 4 mg Q8H PRN Administration vomiting, or N/V if npo Fluticasone/Salmet luisana 1 puff 05/31/20 20:00 06/07/20 20:20 Fluticasone-Salm eterol 250-50 Disk us INHALATION 1 puff BID.RESPIRATORY S CH Administration Vitals/I&O/Wt Last Vital Signs Temp 97.9 F 06/08/20 07:46 Pulse 65 06/08/20 07:46 Resp 18 06/08/20 07:46 BP 140/63 06/08/20 07:46 Pulse Ox 94 06/08/20 07:46 06/07/20 06/08/20 06/08/20 22:59 06:59 14:59 Intake Total 240 / 1000 240 / 1240 240 / 240 Balance 240 / 1000 240 / 1240 240 / 240 Physical Exam Narrative: EXAM NARRATIVE: The patient is awake alert oriented. No acute distress. Mood and affect are appropriate. Responses are adequate. Skin is warm and dry. Moist mucous membranes. Neck supple. No JVD Lungs minimally decreased breath sounds bibasilarly with mild scattered crackles. No respiratory distress Heart S1, S2, regular Abdomen soft, nontender, bowel sounds are present Extremities no cyanosis or calf tenderness bilaterally. Data : 06/05/20 06:20 06/05/20 06:20 A&P Assessment and plan (1) Acute respiratory failure: Ac Hypoxic R/F 2/2 COVID PNA /Possible superimposed bacterial PNA. On Remdesivir for 5 day course Dexamethasone 6mg I.V 10 Days course Advair I PUFF BID Levofloxacin 750 mg i.v Daily Trend Inflammatory Markers Lovenox 40 mg sc daily Status: Acute Qualifiers: Respiratory failure complication: hypoxia Qualified Code(s): J96.01 - Acute respiratory failure with hypoxia (2) Pneumonia due to 2019 novel coronavirus: Status: Acute (3) Diabetes: Status: Acute Additional A&P Information Code Status :Full Code DVT PPX: Lovenox 40 m sc daily [place] Acute hypoxic respiratory failure secondary to COVID-19 viral pneumonia. Completed remdesivir. Received convalescent plasma. Continuing dexamethasone. Continue spending some time pronned and continue using incentive spirometry. Continue supplemental oxygen. Today on 4 L/min. New home O2 eval. We will monitor his CRP and chest x-ray if he allows the tests. Probably will DC him home with home O2. He understands the risks of worsening health or if he leaves AGAINST MEDICAL ADVICE. Diabetes. Untreated. Uncontrolled hyperglycemia. The patient's was told before about diabetes but was not able to afford medications. He tried diet and weight management. I counseled him. At this point he will need to be on insulin. We will increase NPH dose today again. Thrombocytopenia. No evidence of thrombosis. Doubt HIT. Resolved. Could have been a lab error. Will continue Lovenox. DVT prophylaxis. Lovenox. The patient apologized for yelling during the interview. He verbalized satisfaction with my explanations and conversation and was grateful for the services that we provide here. Discussed with the nurse. Attestations Medical Necessity Statement*: Possible discharge tomorrow Coding Level of Care Code Acute Costume Seamstress for [facility] Diagnoses Acute respiratory failure J96.01 Respiratory failure complication: hypoxia Pneumonia due to 2019 novel coronavirus U07.1; J12.89 Diabetes E11.9
[2020-06-08 10:49] LABS: Glucose Point of Care 219 mg/dL (70-110)
[2020-06-08] MEDS: dexamethasone 4 mg/mL INJ 6 MG IVP (15:35)
[2020-06-08] MEDS: enoxaparin 40 mg/0.4 mL Syringe SUBCUT (15:36)
[2020-06-08 17:29] LABS: Glucose Point of Care 194 mg/dL (70-110)
[2020-06-08] MEDS: insulin nph human 100 units/1 mL 24 UNIT SUBCUT (18:01)
[2020-06-08 21:29] LABS: Glucose Point of Care 423 mg/dL (70-110)
[2020-06-09] VITALS (7 sets, daily range): BP systolic 113–133; BP diastolic 75–85; PULSE 58–110; RESP 16–20; TEMP 36.3–36.9; O2SAT 91–95
[2020-06-09 06:06] LABS: Basophils # 0.1 10^3/uL (0.0-0.1); Basophils % 0.5 %; Eosinophils % 0.4 %; Hematocrit 46.6 % (42.0-52.0); Hemoglobin 14.5 g/dL (11.7-16.6); Lymphocytes # 1.6 10^3/uL (0.8-4.8); Mean Corpuscular HGB Conc 31.1 g/dL (30.0-36.0); Mean Corpuscular Hemoglobin 27.2 pg (28.0-34.0); Mean Corpuscular Volume 87.3 fL (80-94); Monocytes # 0.8 10^3/uL (0.2-0.9); Neutrophils # 8.06 10^3/uL (1.8-7.7); Neutrophils % 74.6 %; Nucleated Red Blood Cells % 0 %; Platelet Count 254 10^3/cmm (130-400); Red Blood Count 5.34 10^6/uL (4.1-5.3); Red Cell Distribution Width 13.5 % (12.1-15.1); White Blood Count 10.8 10^3/uL (4.0-10.0)
[2020-06-09 06:18] LABS: D Dimer 0.44 ug/mIFEU (0-0.59)
[2020-06-09 06:36] LABS: Alanine Aminotransferase 26 U/L (0-41); Albumin Level 3.4 g/dL (3.5-5.2); Alkaline Phosphatase 52 IU/L (40-130); Blood Urea Nitrogen 15 mg/dL (6-20); C Reactive Protein 4.4 mg/L (0.0-4.9); Calcium 8.4 mg/dL (8.5-10.5); Carbon Dioxide 23 mmol/L (22-29); Chloride 103 mmol/L (98-107); Globulin 3.4 g/dL (1.3-4.6); Glomerular Filtration Rate 249.3 mL/min (90-130); Glucose 146 mg/dL (65-115); Magnesium 2.2 mg/dL (1.7-2.3); Osmolality Calculated 287 mOsm/kg (285-295); Sodium 137 mmol/L (136-145); Total Bilirubin 0.3 mg/dL (0.15-1.2); Total Protein 6.8 g/dL (6.6-8.7)
[2020-06-09 06:38] LABS: Anion Gap 15.1 (5-19); Potassium 4.1 mmol/L (3.5-5.1)
[2020-06-09 06:39] LABS: Aspartate Amino Transferase 18 U/L (0-40)
[2020-06-09] MEDS: insulin nph human 100 units/1 mL 24 UNIT SUBCUT (06:44)
[2020-06-09 06:48] LABS: Glucose Point of Care 143 mg/dL (70-110)
[2020-06-09 06:48] LABS: NT Pro B Type Natriuretic Pept 64 pg/mL (0-125); Procalcitonin 0.07 ng/mL (0-0.5)
[2020-06-09] MEDS: lisinopril 5 mg Tablet PO (08:11)
[2020-06-09] MEDS: guaiFENesin 600 mg Tablet PO (08:11)
[2020-06-09 11:05] LABS: Glucose Point of Care 233 mg/dL (70-110)
--- NOTE | 2020-06-09 11:15 | PM.DCS ---
Discharge Providers Date of Admission: 05/30/20 13:21 Date of Discharge: June 09, 2020 Attending Provider at Admission: Emeka Drake MD Attending Provider at Discharge: Lennox Uriostegui Primary Care Provider: Kenny Rico Diagnoses at Discharge Discharge Diagnosis (1) Acute respiratory failure: Status: Acute Qualifiers: Respiratory failure complication: hypoxia Qualified Code(s): J96.01 - Acute respiratory failure with hypoxia (2) Pneumonia due to 2019 novel coronavirus: Status: Acute (3) Diabetes: Status: Acute Reason for Visit Reason for Visit: COVID+...COUGH, DRY HEAVES, FEVER Hospital Course Hospital Course Discharge diagnoses and problem list Acute hypoxic respiratory failure secondary to COVID-19 viral pneumonia. Completed remdesivir and steroid Tx. Received convalescent plasma. Still requires 4 L of oxygen. Inflammatory markers have improved significantly. Ready for discharge with supplemental oxygen. He also feels ready to go home. Denies any active complaints. No shortness of breath with supplemental oxygen. Cough is much improved. No fever or chills. No nausea or vomiting. No diarrhea. No chest pain. He is instructed to come back to emergency room if he develops any new or worsening symptoms. Strict quarantine instructions were provided. Also provided. Instructions for follow-up visits and testing. He verbalized understanding and agreement. Diabetes. Untreated/Uncontrolled. The patient's was told before about diabetes but was not able to afford medications. He tried diet and weight management. Diabetes counseling was provided. He does not want to be discharged on insulin. He wants to try Metformin first. However he is agreeable to follow-up with primary care physician and have further adjustments to his treatments after discharge. Thrombocytopenia. No evidence of thrombosis. Doubt HIT. Resolved. Could have been a lab error. DVT prophylaxis. Received Lovenox. D-dimer is normalized. Being discharged on aspirin 81 mg twice daily for 30 days. Possible side effects are discussed. He was asked to watch for any signs of bleeding. He verbalized understanding and agreement. Physical Exam Narrative: EXAM NARRATIVE: The patient is awake alert oriented. No acute distress. Mood and affect are appropriate. Responses are adequate. Skin is warm and dry. Moist mucous membranes. Neck supple. No JVD Lungs minimally decreased breath sounds bibasilarly. No crackles. No respiratory distress Heart S1, S2, regular Abdomen soft, nontender, bowel sounds are present Extremities no cyanosis or calf tenderness bilaterally. No focal weakness or sensory loss. Normal speech. Discharge Data Data Completed and Pending: Completed Studies During Hospitalization Category Date Time Status CT angio chest PE protcl [id number] Stat Cat Scan 05/30/20 12:07 Completed XR chest 1V javan ble [id number] Routine Exams 06/04/20 04:34 Completed XR chest 1V javan ble [id number] Routine Exams 06/08/20 06:00 Completed XR chest 1V javan ble [id number] Stat Exams 05/30/20 09:26 Completed Labs from last 24 hours 06/09/20 06/09/20 06/09/20 10:50 06:43 05:29 WBC RBC Hgb Hct MCV MCH MCHC RDW Plt Count MPV Neut % (Auto) Lymph % (Auto) [place] % (Auto) Eos % (Auto) Baso % (Auto) Neut # (Auto) Lymph # (Auto) [place] # (Auto) Eos # (Auto) Baso # (Auto) Nucleated RBC % (a uto) Nucleated RBCs # D-Dimer Sodium Potassium Chloride Carbon Dioxide Anion Gap BUN Creatinine GFR Calculation Glucose POC Glucose 233 H 143 H Calculated Osmolal ity Calcium Magnesium Total Bilirubin AST ALT Alkaline Phosphata se C-Reactive Protein NT-Pro-B Natriuret Pep 64 Total Protein Albumin Globulin Procalcitonin 0.07 06/09/20 06/09/20 06/09/20 05:29 05:29 05:29 WBC 10.8 H RBC 5.34 H Hgb 14.5 Hct 46.6 MCV 87.3 MCH 27.2 L MCHC 31.1 RDW 13.5 Plt Count 254 MPV 12.0 H Neut % (Auto) 74.6 Lymph % (Auto) 15.0 [place] % (Auto) 7.0 Eos % (Auto) 0.4 Baso % (Auto) 0.5 Neut # (Auto) 8.06 H Lymph # (Auto) 1.6 [place] # (Auto) 0.8 Eos # (Auto) 0.0 Baso # (Auto) 0.1 Nucleated RBC % (a uto) 0 Nucleated RBCs # 0.0 D-Dimer 0.44 Sodium 137 Potassium 4.1 Chloride 103 Carbon Dioxide 23 Anion Gap 15.1 BUN 15 Creatinine 0.4 L GFR Calculation 249.3 H Glucose 146 H POC Glucose Calculated Osmolal ity 287 Calcium 8.4 L Magnesium 2.2 Total Bilirubin 0.3 AST 18 ALT 26 Alkaline Phosphata se 52 C-Reactive Protein 4.4 NT-Pro-B Natriuret Pep Total Protein 6.8 Albumin 3.4 L Globulin 3.4 Procalcitonin 06/08/20 06/08/20 20:57 17:14 WBC RBC Hgb Hct MCV MCH MCHC RDW Plt Count MPV Neut % (Auto) Lymph % (Auto) [place] % (Auto) Eos % (Auto) Baso % (Auto) Neut # (Auto) Lymph # (Auto) [place] # (Auto) Eos # (Auto) Baso # (Auto) Nucleated RBC % (a uto) Nucleated RBCs # D-Dimer Sodium Potassium Chloride Carbon Dioxide Anion Gap BUN Creatinine GFR Calculation Glucose POC Glucose 423 H 194 H Calculated Osmolal ity Calcium Magnesium Total Bilirubin AST ALT Alkaline Phosphata se C-Reactive Protein NT-Pro-B Natriuret Pep Total Protein Albumin Globulin Procalcitonin Vitals: Last Vital Signs Temp 97.7 F 06/09/20 10:52 Pulse 100 06/09/20 10:52 Resp 16 06/09/20 10:52 BP 113/75 06/09/20 10:52 Pulse Ox 92 06/09/20 10:52 Discharge Plan Discharge Patient Disposition: Home Condition: Stable Prescriptions: New acetaminophen 325 mg Tablet 650 mg PO Q6H PRN (Reason: Mild/Mod Pain Or Temp >/= 101) Qty: 20 RF: 0 aspirin 81 mg tablet,delayed release (DR/EC) 81 mg PO BID Qty: 60 RF: 0 Vitamin D3 125 mcg (5,000 unit) tablet 125 mcg PO DAILY Qty: 30 RF: 0 ascorbic acid (vitamin C) 500 mg capsule 500 mg PO DAILY 30 Days Qty: 30 RF: 0 zinc 50 mg tablet 50 mg PO BID Qty: 60 RF: 0 metformin 1,000 mg tablet 500 mg PO BID Qty: 30 RF: 0 Discharge Orders: Discharge Order (Routine); Ordered 06/09/20 Ordered By: Lennox Uriostegui Other Ambulatory Orders: Complete Blood Count w/Auto (Routine) Timeframe: 2 Weeks Location: Determined by Patient Ordered By: Lennox Uriostegui Comprehensive Metabolic Panel (Routine) Timeframe: 2 Weeks Facility: [facility] - Location: Lab - Main Lab Ordered By: Lennox Uriostegui XR chest 2V* [id number] (Routine) Timeframe: 3 Weeks Facility: [facility] - Location: Radiology [facility] Ordered By: Lennox Uriostegui DME: Oxygen (Order) Location: None Selected Ordered By: Lennox Uriostegui Referrals: Sue [Outside] Niki Fernandez DO [Physician] - 06/19/20 9:00 am (You have a new patient establishing appointment with Dr. fernandez June 19 at 9 AM. You will recieve a letter in the mail before this appointmennt, you will need to call and confirm once you recieve this letter. If you need to, you can go to urgent care or call Dr. Fernandez office before your appointment. ) Discharge Diet: Diabetic Discharge Activity: Increase activity as tolerated Patient Instructions: Type 2 Diabetes, Diabetes and Diet, Foot Care for Diabetics, Viral Pneumonia (GEN), Hypoxia (GEN), Pneumonia Stoplight, Using Oxygen at Home Activity Restrictions/Additional Instructions: Please continue maintaining strict quarantine until you are cleared by your primary care physician to return to your normal activities. Please come back to emergency room if you develop any new worsening shortness of breath, chest pain, worsening cough, fever or chills, nausea or vomiting, confusion, weakness, dizziness, diarrhea, or any other new pain. Please ask your doctor to continue adjusting your diabetes medications. Discharge Attestations Time Spent in Discharge Care*: less than 30 min Quality Metrics Clinical Quality Measures During this hospital stay, did patient experience: None Coding Level of Care Code Acute [facility] note Diagnoses Acute respiratory failure J96.01 Respiratory failure complication: hypoxia Pneumonia due to 2019 novel coronavirus U07.1; J12.89 Diabetes E11.9
[2020-06-09] MEDS: dexamethasone 4 mg/mL INJ 6 MG IVP (12:06)
--- NOTE | 2020-06-09 13:09 | PC.NURSE ---
Patient discharged. Educated patient on discharge medications as well as oxygen use. Educated as well on when to come back to the ER or Urgent care. Patient also educated on new diabetes medication and to monitor blood sugars. Patient verbalized understanding. Follow up appointment discussed as well. Patient wheeled out by aid, to private vehicle.
== END 2020-06-09 13:15 | disposition home or self-care (01) | DRG 177 ==
LOC: ER 11:27 → MEDSURG 16:02
PROVIDERS: Nurse Practitioner Family; Admitting Provider Internal Medicine; Emergency Provider Family Medicine; PCP Family Medicine; Visit Provider Internal Medicine
DX: U07.1 COVID-19 (principal); J12.82 Pneumonia due to coronavirus disease 2019; J96.01 Acute respiratory failure with hypoxia; Z68.42 Body mass index [BMI] 45.0-49.9, adult; I10 Essential (primary) hypertension; E66.01 Morbid (severe) obesity due to excess calories; E11.65 Type 2 diabetes mellitus with hyperglycemia
CPT/HCPCS: 36415; 36416; 36430; 36600; 71045; 71275; 80048; 80053; 80069; 82728; 82803; 82962; 83036; 83605; 83615; 83735; 83880; 84145; 85025; 85378; 85384; 85610; 86140; 86900; 86927; 94640; 96365; 96367; 96372; 96375; 99285; 99291; J1100; J1650; J1815 ×2; J1885; J1956; J2405; J7030; P9017; Q9967

== ENCOUNTER → 2020-06-19 09:44 | Outpatient (BNVA) | payer SELFPAY | PROVIDERS: PCP Family Medicine; Visit Provider Family Medicine | DX: E11.9 Type 2 diabetes mellitus without complications (principal); U07.1 COVID-19; J12.89 Other viral pneumonia; J12.82 Pneumonia due to coronavirus disease 2019; Z68.42 Body mass index [BMI] 45.0-49.9, adult | CPT/HCPCS: 80053; 80061; 85025 ==

== ENCOUNTER 2020-06-30 10:25 | Outpatient (CLI) | payer OTHER, SELFPAY ==
--- NOTE | 2020-06-30 10:45 | XR_ITS ---
WS: [id number] CHEST 2 VIEWS HISTORY: PNA/COVID COMPARISON: 06/08/2020 Lungs: Lung volumes are slightly reduced. There is persistent bilateral pulmonary opacifications, gre atest throughout the mid and lower lungs. As compared to the prior study there has been a moderate im provement. Cardiac size: Normal. Mediastinum/Aorta: Normal mediastinum. Bones: Normal. XR/XR chest 2V* [id number] IMPRESSION: Moderate improvement of pulmonary opacifications consistent with Covid 19. Ther e are persistent mid and lower lobe opacifications.
== END 2020-06-30 10:26 | disposition home or self-care (01) ==
PROVIDERS: PCP Family Medicine; Visit Provider Internal Medicine
DX: U07.1 COVID-19 (principal)
CPT/HCPCS: 71046

== ENCOUNTER → 2020-07-04 11:38 | Outpatient (BNVA) | payer SELFPAY | PROVIDERS: PCP Family Medicine; Visit Provider Family Medicine | DX: E11.9 Type 2 diabetes mellitus without complications (principal) | CPT/HCPCS: 80048 ==

== ENCOUNTER 2020-07-16 11:13 | Emergency (ER) | payer SELFPAY ==
[2020-07-16 11:30] VITALS: BP 141/83; PULSE 148; RESP 12; TEMP 36.5; O2SAT 94; BMI 46.7
--- NOTE | 2020-07-16 11:55 | ECG_ITS ---
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 Measurements Intervals [place] Rate: 148 P: 46 SC: 108 QRS: 24 QRSD: 88 T: 38 QT: 285 QTc: 448 Interpretive Statements SINUS TACHYCARDIA WITH SHORT SC INTERVAL, POSSIBLE ATRIAL FLUTTER NONSPECIFIC T-WAVE ABNORMALITY ABNORMAL RHYTHM ECG No previous ECG available for comparison Electronically Signed On 07-17-2020 9:29:39 CDT by Harry Troncoso M.D. [id number] f
--- NOTE | 2020-07-16 11:55 | XR_ITS ---
WS: [id number] Portable AP upright chest, 07/16/2020 Clinical Data: tachycardia Comparison: PA and lateral chest, 06/30/2020. Findings: No nodules, masses or effusions are seen. The heart is normal. The pulmonary vascularity is not increased. No pneumothorax is seen. There is minimal patchy opacity in left lower lobe. The bib asilar opacities have diminished greatly compared to the prior x-ray. XR/XR chest 1V portable [id number] Impression: Almost total clearing of bibasilar opacities.
[2020-07-16 12:11] VITALS: PULSE 150
--- NOTE | 2020-07-16 12:56 | PC.NURSE ---
Entered room with Fluids and Med in hand , pt immediately told me I am Not having blood drawn or an IV . Informed pt, it was protocol to start an IV, draw blood and start fluids for Heart Rates of 150 which is considered Tachycardia. Again,tried to educate pt on the procedure and the importance of starting an IV. He continued to Refuse. Consulted Dr Yoon who also went into the room to talk, educate and persuade pt to allow for IV and blood drawn. Dr Yoon informed pt , if we are not able to take care or treat the pt and your symptoms , then you will have to sign out AMA. Pt agreed and said he understood. AMA form was given to pt, which he signed. Dr Yoon and myself witnessed his signing.
--- NOTE | 2020-07-16 13:02 | ED_ITS ---
HPI - Chest Pain General: Chief Complaint: Chest Pain Stated Complaint: CP, VOMITING Time Seen by Provider: 07/16/20 11:55 History of Present Illness: HPI narrative: The patient is a 30-year-old male with past medical history diabetes. He had Covid in April. He comes to the ER complaining of chest pain and that he vomited earlier today. His heart rate is 145 bpm sinus tachycardia and he is diaphoretic. He says his heart rate is always elevated to the 120s and I discussed that it is severely elevated today. He says he was driving and started shaking and thinks his blood sugar is low so he drank some orange juice and then vomited. He also admits of a pressure and pain sensation in the middle of his chest where it feels like his chest needs to pop. MD complaint: chest pain Pain location: substernal Pain radiation: none Associated symptoms: Reports nausea and vomiting; Deny abdominal pain, dyspnea or palpitations Treatment prior to arrival: none Review of Systems General: Reports: 10 or more systems reviewed and unremarkable except in HPI and below Const: Denies: fatigue Eyes: Denies: change in vision, blurry vision or eye redness ENMT: Denies: throat pain, swelling of lips/tongue, ear or mastoid pain or nasal congestion Card: Denies: chest pain, palpitations, irregular heart rhythm, edema, dyspnea on exertion or orthopnea Resp: Denies: dyspnea, productive cough or non-productive cough GI: Reports: nausea and vomiting; Denies: abdominal pain : Denies: flank pain, urinary frequency or urinary urgency Musc: Denies: neck pain, back pain, extremity pain, joint pain, joint redness, limited range of motion or muscle weakness Skin/Breast: Denies: rash, pruritus, erythema, skin pain or skin tenderness Neuro: Denies: headache(s), numbness in extremities, weakness in extremities, sensory changes, difficulty walking, dizziness, confusion or Slurred speech present Psych: Denies: anxiety or depression Endo: Denies: polyuria All/Imm: Denies: urticaria, throat swelling or tongue swelling PFSH ED PFSH: Medical History History of COVID-19 Type 2 diabetes mellitus, without long-term current use of insulin Surgical History H/O foot surgery Family History Other Diabetes Social History Smoking and tobacco status: never smoked Alcohol intake: never Physical Exam Narrative: EXAM NARRATIVE: The patient is diaphoretic and in sinus tachycardia with rate in the 140s. Morbidly obese Const: COMMON NORMALS: no acute distress, patient oriented x3, no limitations, alert and well nourished GENERAL APPEARANCE: well kempt, well developed and anxious NUTRITIONAL APPEARANCE: obese ORIENTATION/CONSCIOUSNESS: Yes awak e, Yes oriented to person, Yes oriented to place and Yes oriented to time HENMT: COMMON NORMALS: normocephalic, external ears normal and Normal external nose present HEAD & SCALP: normal to inspection and normocephalic NOSE: Normal external nose present EXTERNAL EAR: Yes external ears normal MOUTH: Normal oral and palatal mucosa present THROAT: posterior oropharynx normal Eye: COMMON NORMALS: Equal, round and reactive pupils present and EOMs intact bilaterally GENERAL EYE: appearance normal, both eyes and all related structures PUPIL: Yes Equal, round and reactive pupils present Neck/C-Spine: COMMON NORMALS: full ROM, no lymphadenopathy, no meningeal signs and no JVD GENERAL: Yes normal visual inspection Lymph: LYMPHATIC: no lymphadenopathy noted Chest: COMMONS NORMALS: normal inspection of the chest and normal palpation of entire chest wall Resp: COMMON NORMALS: normal respiratory effort, No retractions, No use of accessory muscles, clear to auscultation bilaterally and percussion normal EFFORT & INSPECTION: Yes able to speak in complete sentences AUSCULTATION: clear to auscultation bilaterally PERCUSSION: percussion normal Cardio: COMMON NORMALS: no JVD, regular rhythm, S1 normal heart sound present, S2 normal heart sound present and Peripheral pulses 2+ throughout RATE: tachycardic (Rate 140s sinus tachycardia) RHYTHM: regular rhythm HEART SOUNDS: S1 normal heart sound present and S2 normal heart sound present PERIPHERAL PULSES: Peripheral pulses 2+ throughout GI: COMMON NORMALS: Normal to inspection, nondistended, normoactive bowel sounds present, Soft to palpation, non-tender and no masses INSPECTION: Yes normal to inspection PALPATION: Yes Soft to palpation : COMMON NORMALS: Yes no CVA tenderness BLADDER/KIDNEY EXAM: Yes no CVA tenderness Back/Pelvis: COMMON NORMALS: no CVA tenderness, thoracic and lumbar spine normal to inspection, no thoracic nor lumbar tenderness and thoraco-lumbar ROM normal Extremity: COMMON NORMALS: normal to inspection, full ROM, capillary refill normal, no joint enlargement and no pedal edema GENERAL: Yes normal exam except as noted Neuro: COMMON NORMALS: patient oriented x3, CN's II-XII intact bilaterally, moves all extremities, no focal motor deficits, no sensory deficits noted and gait normal SENSORIUM/ORIENTATION: Yes alert, Yes oriented to person, Yes oriented to place and Yes oriented to time MENINGEAL SIGNS: Yes no meningeal signs Psych: COMMON NORMALS: mental status grossly normal, Normal thought process present, cooperative, normal affect and speech normal APPEARANCE: Yes well kempt ATTITUDE: Yes calm SPEECH: Yes normal speech THOUGHT PROCESS: Normal thought process present Skin: COMMON NORMALS: no rashes or lesions noted GENERAL SKIN EXAM: no rashes or lesions noted OTHER: Diaphoresis to the head Course Vital Signs: Vital signs: Vital Signs Temperature 97.7 F 07/16/20 11:30 Pulse Rate 148 H 07/16/20 11:30 Respiratory Rate 12 07/16/20 11:30 Blood Pressure 141/83 07/16/20 11:30 Pulse Oximetry 94 07/16/20 11:30 MDM - Chest Pain MDM Narrative: Medical decision making narrative: The patient came to the ER with some concerning symptoms he has sinus tachycardia in the 140s and diaphoretic. He also has a history of diabetes. I discussed we would order labs and work-up on him and he discussed with the nurse when she went to draw the labs that he refused blood draw. He then requested to leave AGAINST MEDICAL ADVICE. I went into the room with the nurse and discussed with him that his heart rate is very fast and he is likely having an arrhythmia, could have a heart attack or blood clot which could kill him. He says he appreciates the help but he wishes to leave AGAINST MEDICAL ADVICE he understands the risks and prefers to follow-up in the clinic Tuesday. I advised him to return to the ER at anytime with worsening symptoms. Discharge Plan Discharge Patient Disposition: Left Against Medical Advice Clinical Impression: Tachycardia Prescriptions: No Action acetaminophen 325 mg Tablet 650 mg PO Q6H PRN (Reason: Mild/Mod Pain Or Temp >/= 101) Qty: 20 RF: 0 metformin 1,000 mg tablet 1,000 mg PO BID@0800,2100 RF: 0 zinc 50 mg tablet 50 mg PO BID@0800,2100 RF: 0 Vitamin D3 125 mcg (5,000 unit) tablet 125 mcg PO DAILY@0800 RF: 0 Invokana 100 mg tablet 100 mg PO DAILY@0800 RF: 0 Vitamin C 1 tab PO DAILY@0800 RF: 0 Referrals: Niki Collins DO [Primary Care Provider] - Coding Level of Care Code ED [employer] for Adrianag Jatin
== END 2020-07-16 12:11 | disposition left against medical advice (07) ==
PROVIDERS: Emergency Provider Family Medicine; PCP Family Medicine
DX: R00.0 Tachycardia, unspecified (principal); Z53.21 Procedure and treatment not carried out due to patient leaving prior to being seen by health care provider; E11.9 Type 2 diabetes mellitus without complications
CPT/HCPCS: 71045; 93005; 99283

== ENCOUNTER 2020-07-30 08:25 | Outpatient (CLI) | payer SELFPAY ==
--- NOTE | 2020-07-30 08:45 | CT_ITS ---
WS: [id number] CTA OF THE CHEST WITH PULMONARY EMBOLISM PROTOCOL TECHNIQUE: High-resolution contrast enhanced CTA of the chest with coronal and sagittal reformatted i mages with pulmonary embolism protocol. MIP images are also reviewed. CLINICAL INFORMATION: r/o PE COMPARISON: May 30, 2020 DLP: 2892.[address] scans at [facility] use at least one of these dose optimization techniques: automat ed exposure control; mA and/or kV adjustment per patient size (includes targeted exams where dose is matched to clinical indication); or iterative reconstruction. FINDINGS: Proximal main pulmonary arteries are normal. Segmental and subsegmental pulmonary arteries appear pat ent. No evidence of pulmonary embolus. Normal caliber thoracic aorta. No mediastinal or hilar lymphadenopathy.Adrenal glands are normal. Lungs are well aerated. No acute pulmonary infiltrates. No focal pneumonia or pleural fluid. Previous ly described hazy ground glass infiltrates have resolved. Normal thoracic spine. CT/CT angio chest PE protcl [id number] IMPRESSION: 1. Proximal main pulmonary arteries are normal. No evidence of pulmonary embol us. 2. Both lungs are well aerated. No acute pulmonary infiltrates. 3. Previously described hazy groundglass infiltrates have resolved. 4. No mediastinal or hilar lymphadenopathy.
[2020-07-30] MEDS: iohexol 350 mg/mL 100 mL Btl IV ×2 (09:25)
== END 2020-07-30 08:26 | disposition home or self-care (01) ==
LOC: RAD 08:29
PROVIDERS: PCP Family Medicine; Visit Provider Family Medicine
DX: R00.0 Tachycardia, unspecified (principal)
CPT/HCPCS: 71275

== ENCOUNTER → 2020-08-13 10:52 | Outpatient (BNVA) | payer SELFPAY | PROVIDERS: PCP Family Medicine; Visit Provider Family Medicine | DX: E11.9 Type 2 diabetes mellitus without complications (principal); I10 Essential (primary) hypertension; Z86.16 Personal history of COVID-19; Z68.42 Body mass index [BMI] 45.0-49.9, adult | CPT/HCPCS: 80053; 83036 ==